=== PATIENT | female | born 1940 | race Caucasian/White ===

== ENCOUNTER → 2023-02-24 | Outpatient (CLI) | payer MEDICARE, SELFPAY ==
--- NOTE | 2023-02-24 13:50 | CT_ITS ---
EXAM: CT RIGHT LOWER EXTREMITY WITHOUT INTRAVENOUS CONTRAST CLINICAL INDICATION: templating for right TKA TECHNIQUE: Helically acquired images were obtained of the right lower extremity without intravenous contrast. 2-D reformats were performed by the technologist. CTDIvol = ( 25.66 ) mGy, DLP = ( 1588.19 ) mGycm This CT exam was performed using one or more of the following dose reduction techniques: automated exposure control, adjustment of the mA and/or kV according to patient size, and/or use of iterative reconstruction technique. COMPARISON: No relevant prior studies available. 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 Moderate suprapatellar joint effusion. Small suprapatellar enthesophyte. Lateral meniscal chondral calcinosis. Diffuse osteopenia. Mild to moderate hip osteoarthrosis. Ankle mortise is intact with no osteochondral lesions at the medial or lateral talar dome. No acute or healing fracture or malalignment or any unusual lytic or sclerotic lesions of bone. SOFT TISSUES: Unremarkable. No soft tissue swelling or gas. No radiopaque foreign body. VASCULATURE: Multivessel peripheral vascular calcifications involving the extremity. CT/Extremity Lower without Contra IMPRESSION: 1. Preoperative planning study. 2. 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 Electronically Signed: Terrence Bueno MD at 23:53 EST ,
== END | disposition home or self-care (01) ==
PROVIDERS: PCP Family Medicine; Referring Provider Orthopaedic Surgery; Visit Provider Orthopaedic Surgery
DX: M17.11 Unilateral primary osteoarthritis, right knee (principal)
CPT/HCPCS: 73700

== ENCOUNTER 2023-03-24 05:53 | Day surgery (SDC) | payer MEDICARE, SELFPAY ==
[2023-03-13 09:19] LABS: Absolute Lymphocyte Count 2.26 X10^3/uL (0.83-4.51); Absolute Neutrophil Count 5.4 X10^3/uL (2.0-7.7); Basophil# 0.04 X10^3/uL; Basophil% 0.5 % (0-1); Eosinophil# 0.24 X10^3/uL; Eosinophils% 2.8 % (0-5); Hematocrit 36.4 % (37-47); Hemoglobin 12.4 g/dL (12.0-15.0); Lymphocyte # 2.26 X10^3/ul (0.83-4.51); Lymphocyte % 26.1 % (19-41); Mean Corp Hgb Conc 34.1 g/dL (32-36); Mean Corpuscular Hgb 27.4 pg (27.0-32.0); Mean Corpuscular Volume 80.5 fL (81-99); Mean Platelet Vol. 10.2 fl (6.2-12.0); Monocyte# 0.71 X10^3/uL; Monocyte% 8.2 % (0-10); NRBC Flagged by Analyzer 0 % (0-5); Neutrophil # 5.35 X10^3/uL (2.7-7.7); Neutrophil % 61.7 % (47-70); Platelet Count 248 K/mm3 (150-450); RBC Distribution Width CV 14.2 % (11.6-14.6); RBC Distribution Width SD 41.4 fl (35.1-43.9); Red Blood Count 4.52 M/mm3 (4.2-5.4); White Blood Count 8.7 K/mm3 (4.4-11.0)
[2023-03-13 09:26] LABS: International Normalized Ratio 0.9; Prothrombin Time (Protime)PT. 12.6 SECONDS (11.7-14.9)
[2023-03-13 09:27] LABS: Partial Thromboplast Time 27.2 Seconds (24.1-36.2)
[2023-03-13 09:30] LABS: Magnesium 2.2 mg/dL (1.6-2.6)
[2023-03-13 09:36] LABS: Anion Gap 4 (5-15); BUN 13 mg/dL (7-18); BUN/Creat Ratio 11.7 RATIO (10-20); Calcium,Total 9.5 mg/dL (8.5-10.1); Chloride 110 mmol/L (98-107); Creatinine, Serum 1.11 mg/dL (0.55-1.02); EST Glomerular Filtration Rate 50 mL/min (>60); Est Glom Filt Rate - Afr Amer 60 mL/min (>60); Glucose 79 mg/dL (74-106); Potassium 4.3 mmol/L (3.5-5.1); Sodium Level 141 mmol/L (136-145)
[2023-03-13 09:41] LABS: Hemoglobin A1c 5.3 % (3.8-5.6)
[2023-03-14 05:13] LABS: Fructosamine 211 umol/L (0-285)
[2023-03-24] VITALS (10 sets, daily range): BP systolic 118–161; BP diastolic 58–140; PULSE 79–104; RESP 18; TEMP 36.4–37.1; O2SAT 96–100; BMI 31.4
--- NOTE | 2023-03-24 | PAT_PTH ---
PATHOLOGY RESULTS PATIENT: ERICK BASSETT LOC: [facility] – [place] U#:[id number] AGE/SX: 82/F ROOM: RE03/24/[address]: Dr. Peter Mac DO : 1940 BED: DIS: 03/24/2023 SPEC #: [id number] RECD: 03/25/23 08:36 STATUS: MIMA REJanine #: [id number] DESTINEE: 03/24/23 00:[address]: Peter Mac DEPT: SURGICAL PATHOLOGY RECD BY: Danica Sorenson ENTERED: 03/25/23 08:36 SP TYPE: PATELLA PATSY DR: Dr. Finesse Nicole MD Tissues: Patella, NOS Procedures: Decalcification bone/plaque Surgery Specimen Level IV HEADER OPERATION: ERAS, right total knee replacement robotic arm assisted PRE-OP DIAGNOSIS: Right knee degenerative joint disease TISSUE SUBMITTED: Right patella MICROSCOPIC DIAGNOSIS Bone and soft tissue, right knee, total knee replacement/resection: Pieces of bone with degenerative osteoarthritic changes. Fragments of fibrocartilaginous tissue and reactive synovial tissue. Focal changes consistent with pseudogout. BRIDGETTE:speedy 03/27/2023 MICROSCOPIC DESCRIPTION Slides are reviewed. GROSS DESCRIPTION Received is one container designated right patella and debrided bone. The specimen consists of multiple fragments of adames-yellow bone measuring in aggregate 8.0 x 9.0 x 3.0 cm. Also in the specimen container are multiple fragments of fibrocartilaginous tissue measuring in aggregate 6.0 x 5.0 x 2.0 cm. A number of bony fragments contain articular surfaces consistent with tibial plateau and femoral condyle and displaying prominent osteophyte formation, eburnation and bone erosion. Measurement Analyst sections are submitted in two cassettes as follows: 1 - soft tissue, 2 - bone after decalcification. / BRIDGETTE:speedy 03/25/2023 TC:5 [facility]: [id number], [id number]
--- OUTSIDE RECORDS SUMMARY | 2023-03-24 05:55 | XMS RPT_ITS | CCD ---
Author Name Unknown Address [address] [place] [address] Organization [facility] Care Team Providers Care Hvac Sales Engineer Name Role Phone Unavailable Primary Care Provider Terence Nicole MD, Saida Coon Primary Care Provider KYLE PAIGE Attending Unavailable KYLE PAIGE Referring Unavailable SAIDA NICOLE Primary Care Unavailab SAIDA Olmos Primary Care Unavailab le PODLOGMICHELLE SHAW Attending Unavailable SAIDA NICOLE Primary Care Unavailab le PODLOGMICHELLE SHAW Referring Unavailable HOOD BARRETO Referring Unavailable SELF Referring Unavailable HOOD BARRETO Attending Unavailable SAIDA NICOLE Attending Unavailab SAIDA Olmos Referring Unavailab SAIDA Olmos Primary Care Unavailab SAIDA Olmos Referring Unavailab le SAIDA NICOLE Primary Care Unavailab SAIDA Olmos Primary Care Unavailab SAIDA Olmos Referring Unavailab le SAIDA NICOLE Primary Care Unavailab SAIDA Olmos Referring Unavailab SAIDA Olmos Primary Care Unavailab le PODLOGARMICHELLE Attending Unavailable SAIDA NICOLE Referring Unavailab SAIDA Olmos Primary Care Unavailab le PODLOGARMICHELLE Referring Unavailable KYLE PAIGE Attending Unavailable SAIDA NICOLE Primary Care Unavailab SAIDA Olmos Referring Unavailab KYLE Feliciano Attending Unavailable KYLE PAIGE Referring Unavailable SAIDA NICOLE Primary Care Unavailab le Allergies Allergy Classification Reported Allergen(s) Allergy Type Date of Onset Reaction(s) Facility (13 sources) Sulfonamides (Antibiotic); Translations: [SULFA (SULFONAMIDE ANTIBIOTICS)] Propensity to adverse reactions 5 [facility] Work Phone: Medications Completed/Discontinued Medications Medication Drug Class(es) Dates Sig (Normalized) Sig (Original) aspirin 81 mg delayed release oral tablet (13 sources) Platelet Aggregation Inhibitor, Nonsteroidal Anti-inflammatory Drug Start: 04-07-2007 End: 11-05-2022 aspirin(ECOTRIN LOW STRENGTH 81 MG TAB) Take one(1) tablet daily. 0 0 04/07/2007 11/05/2022 Discontinued (Discontinued by another Health Care Provider) Problems Active Problems Problem Classification Problem Date Documented Date Episodic/Chronic Chronic kidney disease (1 source) Chronic kidney disease stage 3A ; Translations: [Stage 3a chronic kidney disease (HCC)] 02-06-2023 Chronic Chronic kidney disease (1 source) Chronic kidney disease; Translations: [Stage 3a chronic kidney disease (HCC)] Onset: 02-23-2023 Diseases of white blood cells (2 sources) Leukocytosis; Translations: [Elevated white blood cell count, unspecified] Onset: 11-19-2022 11-06-2022 Chronic Esophageal disorders (12 sources) Gastroesophageal reflux disease; Translations: [Gastro-esophageal reflux disease without esophagitis] Onset: 11-05-2022 11-05-2022 Chronic Essential hypertension (20 sources) Benign essential hypertension; Translations: [Essential (primary) hypertension] Onset: 04-07-2007 04-07-2007 Chronic Immunizations and screening for infectious disease (1 source) Patient encounter status; Translations: [Encounter for immunization] 11-05-2022 Episodic Osteoarthritis (11 sources) Osteoarthritis of right knee joint; Translations: [Unilateral primary osteoarthritis, right knee] Onset: 11-05-2022 10-20-2022 Chronic Other fractures (1 source) Compression fracture of lumbar spine; Translations: [Wedge compression fracture of first lumbar vertebra, sequela] 11-07-2022 Episodic Other nervous system disorders (1 source) Other chronic pain; Translations: [Chronic pain of right knee] Onset: 02-06-2023 Chronic Other non-traumatic joint disorders (6 sources) Pain in right knee; Translations: [Pain in joint, lower leg] Onset: 09-15-2022 Episodic Other nutritional; endocrine; and metabolic disorders (1 source) Obese class I; Translations: [Obesity, unspecified] 11-05-2022 Chronic Other nutritional; endocrine; and metabolic disorders (9 sources) Obesity; Translations: [Obesity, unspecified] Onset: 11-05-2022 11-05-2022 Chronic Other nutritional; endocrine; and metabolic disorders (1 source) Obesity, unspecified; Translations: [Obesity, Class I, BMI 30-34.9] Onset: 11-05-2022 Chronic Past or Other Problems Problem Classification Problem Date Documented Da te Episodic/Chronic Acute and unspecified renal failure (2 sources) Acute injury of kidney; Translations: [Acute kidney failure, unspecified] Onset: 11-19-2022 11-06-2022 Episodic Other bone disease and musculoskeletal deformities (10 sources) Disorder of skeletal system; Translations: [Disorder of bone, unspecified] Onset: 11-05-2022 11-05-2022 Episodic Other non-traumatic joint disorders (12 sources) Shoulder joint pain; Translations: [Pain in unspecified shoulder] Onset: 04-07-2007 04-07-2007 Episodic Spondylosis; intervertebral disc disorders; other back problems (16 sources) Bilateral sciatica; Translations: [Sciatica, right side] Onset: 11-05-2022 11-05-2022 Episodic Results Test Name Value Interpretation Reference Range Facil ity Vital Signs Date Time Vital Sign Value Performing Clinician Justin dukes 02-06-2023 11:11-0500 Body weight 72.12 kg Michelle Podlogar FRANCHISE SALES MANAGER.RALPH Work Phone: [facility] 02-06-2023 11:11-0500 Diastolic blood pressure 72 mm[Hg] Michelle Podlogar FRANCHISE SALES MANAGER.CITY SUPERVISOR Work Phone: [facility] 02-06-2023 11:11-0500 Heart rate 69 /min Michelle Podlogar FRANCHISE SALES MANAGER.CITY SUPERVISOR Work Phone: [facility] 02-06-2023 11:11-0500 Respiratory rate 16 /min Michelle Podlogar FRANCHISE SALES MANAGER.CITY SUPERVISOR Work Phone: [facility] 02-06-2023 11:11-0500 SaO2% (BldA) [Mass fraction] 94 % Michelle Podlogar FRANCHISE SALES MANAGER.CITY SUPERVISOR Work Phone: [facility] 02-06-2023 11:11-0500 Systolic blood pressure 138 mm[Hg] Michelle Podlogar FRANCHISE SALES MANAGER.CITY SUPERVISOR Work Phone: [facility] 11-05-2022 08:41-0400 Body weight 73.03 kg Saida Nicole MD Work Phone: [facility] 11-05-2022 08:41-0400 Diastolic blood pressure 74 mm[Hg] Saida Nicole MD Work Phone: [facility] 11-05-2022 08:41-0400 Heart rate 74 /min Saida Nicole MD Work Phone: [facility] 11-05-2022 08:41-0400 Respiratory rate 14 /min Saida Nicole MD Work Phone: [facility] 11-05-2022 08:41-0400 Systolic blood pressure 138 mm[Hg] Saida Nicole MD Work Phone: [facility] Encounters Encounter Date Encounter Type Care Provider Facility Start: 02-23-2023 End: 02-24-2023 ambulatory SAIDA NICOLE Facility:[facility] Start: 02-23-2023 Encounter for other preprocedural examination MICHELLE [place] [facility] Start: 02-13-2023 End: 02-14-2023 ambulatory SAIDA NICOLE Facility:[facility] Start: 02-06-2023 End: 02-07-2023 ambulatory SAIDA NICOLE Facility:[facility] Start: 02-06-2023 End: 02-06-2023 Patient encounter procedure Michelle Ny FRANCHISE SALES MANAGER.CITY SUPERVISOR Work Phone: [facility] Procedures Date Procedure Procedure Detail Performing Clinician Start: 12-31-2022 INFLUENZA VACCINE, P RSV FREE, AGE 65+ YR, HIGH DOSE, QUADRIVALENT (FLUZONE HIGH-DOSE) Saida Nicole MD Work Phone: Start: 09-15-2022 Radiologic exam knee complete 4/more views Hood Barreto MD Work Phone: Plan of Treatment Date Care Activity Detail Author Start: 11-19-2025 Diabetes Screening Diabetes Screenin g [facility] Start: 11-05-2025 DIABETES SCREEN DIABETES SCREEN Clev [facility] Start: 11-05-2025 Diabetes Screening Diabetes Screenin g [facility] Start: 11-06-2023 COVID-19 VACCINE (#1) COVID-19 VACCI NE (#1) [facility] Immunizations Immunization Date Immunization Notes Care Provider Thuy hartman 12-31-2022 influenza (HD-IIV4) vaccine, age 65+ yr, high dose, quadrivalent, PF (FLUZONE HIGH-DOSE) Immunization Eduardo Work Phone: [facility] Work Phone: 11-05-2022 pneumococcal (PCV20) vaccine, 20 valent (PREVNAR 20) Saida Nicole MD Work Phone: [facility] 11-05-2022 pneumococcal Conjuga te, unspecified formulation Saida Nicole MD Work Phone: [facility] Work Phone: 07-10-2004 diphtheria and tetan us toxoids, adsorbed for pediatric use Hood Barreto MD Work Phone: [facility] Work Phone: 07-10-2004 pneumococcal polysaccharide vaccine, 23 valent Hood Barreto MD Work Phone: [facility] Work Phone: Payers Date Payer Category Payer Private Health Insurance [id number] 2018 Medicare [id number] Social History Date Type Detail Facility Start: 09-15-2022 Tobacco smoking status NHIS Never smoked tobacco [facility] Work Phone: Start: 04-07-2007 Alcohol intake Not Asked Erin brambila [facility] Start: 1940 Sex Assigned At Not on file [facility] Start: 09-15-2022 Tobacco use and exposure Smokeless tobacco non-user [facility] Start: 10-20-2022 End: 02-06-2023 Alcohol intake Current drinker of alcohol (finding) [facility] Start: 02-14-2020 End: 09-15-2022 History of Social function [facility] Work Phone: Start: 02-14-2020 End: 09-15-2022 Tobacco use panel [facility] Work Phone: National Score (1-100), lower number is lower risk Not on file [facility] Work Phone: Start: 09-15-2022 Alcohol Comment occasionally wine Cl [facility] Clinical Notes 09-15-2022 to 02-23-2023 PodMichelle ozuna APRN.CITY SUPERVISOR - 02/06/2023 10:58 AM EST Note Date & Type Note Facility 02-23-2023 Note HNO ID: [id number] Author: Michelle Ny APRN.CITY SUPERVISOR Service: ? Author Type: Nurse Practitioner Type: Progress Notes Filed: 02/23/2023 12:49 PM Note Text: CC: Patient presents with: Pre-Op Exam: Right knee replacement HPI Rosalee Charles is a 82 year old female who presents today for pre-op evaluation. Surgical Procedure: right total knee arthroplasty Date of Procedure: 03/24/2022 Surgeon: . Dr. Bubba BETANCOURT date: none Diabetes No Hypertension requiring medication Yes Congestive Heart Failure No Current Smoker within 1 Year No COPD/asthma No FIDENCIO No Dialysis No Acute renal failure No Steroid use for chronic condition No Disseminated cancer No METS: Walk indoors, such as around the house (1.75 METs): YES Do light work around the house, such as dusting or washing dishes (2.70 METs): YES Take care of self; that is eating, dressing, bathing, using the toilet (2.75 METs): YES Walk a block or two on level ground (2.75 METs): YES Do moderate work around the house such as vacuuming, sweeping floors, or carrying in groceries (3.50 METs): YES Do yardwork, such as raking leaves, weeding,or pushing a power mower (4.50 METs): YES Climb a flight of stairs or walk up a hill (5.50 METs): YES Participate in moderate recreational activities, such as golf, bowling, dancing, doubles tennis, or throwing a baseball or football (6.00 METs): NO Participate in strenuous sport, such as swimming, singles tennis, football, basketball, or skiing (7.50 METs): NO Do heavy work around the house, such as scrubbing floors, lifting or moving heavy furniture (8.00 METs): NO Run a short distance (8.00 METs): No Total: 46.9 Patient denies any chest pain or undue shortness of breath with activity REVIEW OF SYSTEMS GENERAL: No weight loss, malaise or fevers RESPIRATORY: Negative for cough, hemoptysis, wheezing, COPD, dyspnea or shortness of breath CARDIOVASCULAR: Negative for chest pain, leg swelling, hypertension, CHF or palpitations PAST MEDICAL HISTORY Diagnosis Date Arthritis Disorder of bone and cartilage, unspecified Diverticulitis of colon (without mention of hemorrhage)(562.11) GERD (gastroesophageal reflux disease) Hypertension Internal hemorrhoids without mention of complication Lumbar compression fracture (HCC) superior endplate L1 OA (osteoarthritis) of knee Dr. Barreto Obesity Sciatica PAST SURGICAL HISTORY Procedure Laterality Date COLONOSCOPY 2012 normal L'SCOPE CHOLECYSTECTOMY 05/2022 TONSILLECTOMY AND ADENOIDECTOMY ALLERGIES Sulfa (Sulfonamide Antibiotics) MEDICATIONS traMADol (ULTRAM) 50 mg tablet Take 50 mg by mouth as needed. aspirin, enteric coated (ASPIRIN, ENTERIC COATED) 81 mg EC tablet Take 81 mg by mouth twice daily. glucosamine/condroitin/olap809 (COSAMIN ASU ORAL) Take by mouth. omeprazole (PRILOSEC) 20 mg capsule Take 20 mg by mouth once daily. losartan (COZAAR) 50 mg tablet Take 1 tablet by mouth once daily. propylene glycoL (SYSTANE BALANCE) 0.6 % drop Use 1 Drop in both eyes as needed. FAMILY HISTORY Problem Relation Age of Onset Heart Mother Arthritis Mother Cancer Sister Heart disease Maternal Grandmother Breast Cancer Daughter 54 Social History Tobacco Use Smoking status: Never Smokeless tobacco: Never Vaping Use Vaping Use: Never used Substance Use Topics Alcohol use: Yes Alcohol/week: 3.0 standard drinks of alcohol Types: 3 Glasses of wine per week Comment: occasionally wine Drug use: Never BP 130/82 Pulse 79 Resp 18 Wt 72.6 kg (160 lb) SpO2 95% PHYSICAL EXAMINATION: General appearance: Well appearing, alert, in no acute distress, well-hydrated, well nourished. Skin: Skin color, texture, turgor normal, no suspicious rashes or lesions Eyes: Anicteric sclera. Oropharynx: Lips, mucosa, and tongue normal, teeth and gums normal, oropharynx normal Neck: Supple, no adenopathy; thyroid symmetric, normal size, no bruits Lungs: Lungs clear to auscultation. No wheezing, rhonchi, rales. Heart: RRR without murmur, gallop, or rubs. No ectopy Extremities: No deformities, edema, skin discoloration, clubbing or cyanosis. Good capillary refill. ASSESSMENT/PLAN: 1. Preop examination - ICD9: V72.84, ICD10: Z01.818 (primary diagnosis) ASA class: ASA 2- Mild systemic disease Functional status: Independent - 0.4% chance of complication including ND, PE, ventricular fibrillation, cardiac arrest or complete heart block using Rajesh's Simple Cardiac Risk index - ECG COMPLETE - CBC + DIFF - if CBC with diff normal will clear for surgery 2. Stage 3a chronic kidney disease (HCC) - ICD9: 585.3, ICD10: N18.31 - eGFR: 48 Worsening - Counseled on avoiding NSAIDs, adequate hydration - Counseled on low sodium diet - ACEi/ARB prescribed: Yes - BASIC METABOLIC PNL - recheck kidney function in 3 months Michelle Ny APRN.CITY SUPERVISOR Prescription instructions reviewed with patient as applica (more content not included)... [facility] 02-06-2023 Note HNO ID: [id number] Author: Michelle Ny APRN.CITY SUPERVISOR Service: ? Author Type: Nurse Practitioner Type: Progress Notes Filed: 02/06/2023 12:41 PM Note Text: 02/06/2023 Patient presents with: F/U 3 Month SUBJECTIVE: This is a 82 year old that is here today for Above Complaints. Since last office visit has been in good health without ER visits or hospitalizations. HTN: Patient is compliant with meds Yes Monitors bp at home: occasionally . Denies side effects: Yes. Chest pain: No. Dyspnea: No. Edema: No. Palpitations: No. Syncope: No. Headache: No. Dizziness: at times GERD: taking omeprazole as prescribed which controls symptoms well Has upcoming appointment with orthopedist for her right knee pain CKD: she reports she stopped the Celebrex but continues to take Naproxen. She reports she needs the Narpoxen for her hands as it is the only thing that helps PAST MEDICAL HISTORY Diagnosis Date Arthritis Disorder of bone and cartilage, unspecified Diverticulitis of colon (without mention of hemorrhage)(562.11) GERD (gastroesophageal reflux disease) Hypertension Internal hemorrhoids without mention of complication Lumbar compression fracture (HCC) superior endplate L1 OA (osteoarthritis) of knee Dr. Barreto Obesity Sciatica ALLERGIES Sulfa (Sulfonamide Antibiotics) MEDICATIONS Current Outpatient Medications Medication Sig traMADol (ULTRAM) 50 mg tablet Take 50 mg by mouth as needed. aspirin, enteric coated (ASPIRIN, ENTERIC COATED) 81 mg EC tablet Take 81 mg by mouth twice daily. glucosamine/condroitin/tgtu054 (COSAMIN ASU ORAL) Take by mouth. omeprazole (PRILOSEC) 20 mg capsule Take 20 mg by mouth once daily. losartan (COZAAR) 50 mg tablet Take 1 tablet by mouth once daily. propylene glycoL (SYSTANE BALANCE) 0.6 % drop Use 1 Drop in both eyes as needed. celecoxib (CELEBREX) 200 mg capsule Take 1 capsule by mouth twice daily. No current facility-administered medications for this visit. Medications and allergies reviewed by this provider. SOCIAL HISTORY Social History Tobacco Use Smoking status: Never Smokeless tobacco: Never Vaping Use Vaping Use: Never used Substance Use Topics Alcohol use: Yes Alcohol/week: 3.0 standard drinks of alcohol Types: 3 Glasses of wine per week Comment: occasionally wine Drug use: Never REVIEW OF SYSTEMS All other reviewed and negative other than HPI. OBJECTIVE: BP 138/72 Pulse 69 Resp 16 Wt 72.1 kg (159 lb) SpO2 94% . Vital signs reviewed by this provider. APPEARANCE Well appearing, alert, in no acute distress, well-hydrated, well nourished. EYES conjunctiva and sclera normal. HEART RRR with normal S1 and S2, no murmurs, no gallops, no JVD appreciated LUNG clear to auscultation EXTREMITIES Extremities normal, No deformities, No skin discoloration, and No edema SKIN Skin color, texture, turgor normal, no suspicious rashes or lesions Component Latest Ref Rng AND Units 11/05/2022 11/19/2022 WBC 3.70 - 11.00 k/uL 8.66 RBC 3.90 - 5.20 m/uL 4.78 Hemoglobin 11.5 - 15.5 g/dL 13.0 Hematocrit 36.0 - 46.0 % 39.1 MCV 80.0 - 100.0 fL 81.8 MCH 26.0 - 34.0 pg 27.2 MCHC 30.5 - 36.0 g/dL 33.2 RDW-CV 11.5 - 15.0 % 13.2 Platelet Count 150 - 400 k/uL 268 MPV 9.0 - 12.7 fL 11.1 Neut% % 55.6 Abs Neut (ANC) 1.45 - 7.50 k/uL 4.82 Lymph% % 30.4 Abs Lymph 1.00 - 4.00 k/uL 2.63 [place]% % 8.8 Abs [place] <0.87 k/uL 0.76 Eosin% % 3.6 Abs Eosin <0.46 k/uL 0.31 Baso% % 0.9 Abs Baso <0.11 k/uL 0.08 Immature Gran % % 0.7 IMMATURE GRANS (ABS) <0.10 k/uL 0.06 NRBC /100 WBC 0.0 Absolute nRBC <0.01 k/uL <0.01 DTYPE Auto Protein, Total 6.3 - 8.0 g/dL 6.8 Albumin 3.9 - 4.9 g/dL 4.1 Calcium 8.5 - 10.2 mg/dL 10.2 Bilirubin, Total 0.2 - 1.3 mg/dL 0.5 Alkaline Phosphatase 34 - 123 U/L 78 AST 13 - 35 U/L 19 ALT 7 - 38 U/L 11 Glucose 74 - 99 mg/dL 96 BUN 7 - 21 mg/dL 11 Creatinine 0.58 - 0.96 mg/dL 1.02 (H) Sodium 136 - 144 mmol/L 140 Potassium 3.7 - 5.1 mmol/L 4.2 Chloride 97 - 105 mmol/L 105 CO2 22 - 30 mmol/L 25 Anion Gap 9 - 18 mmol/L 10 eGFR >=60 mL/min/1.73mA? 55 (L) Total Cholesterol, Nonfasting <200 mg/dL 157 Triglycerides, Nonfasting <150 mg/dL 106 HDL Cholesterol, Nonfasting >39 mg/dL 42 LDL Cholesterol, Nonfasting <100 mg/dL 94 Non HDL Cholesterol, Nonfasting <130 mg/dL 115 VLDL Cholesterol, Nonfasting <30 mg/dL 21 Total Chol/HDL Ratio, Nonfasting <5.10 mg/dL 3.74 LDL/HDL Ratio, Nonfasting <2.54 mg/dL 2.24 Hemoglobin A1C 4.3 - 5.6 % 5.5 Estimated Average Glucose mg/dL 111 RSV Vaccine(1 - 1-dose 60+ series) Never done Advance Directive Discussion Never done DTaP,Tdap,Td Vaccine(2 - Tdap) due on 11/06/2023 Shingrix Vaccine(1 of 2) due on 11/06/2023 Covid-19 Vaccine(1) due on 11/06/2023 Diabetes Screening due on 11/19/2025 Bone Density Screening Completed Influenza Vaccine Completed Depression Assessment Completed Pneumococcal Vaccine: 65+ Co (more content not included)... [facility] 02-06-2023 History of Present illness Narrative 02/06/2023 Patient presents with: F/U 3 Month SUBJECTIVE: This is a 82 year old that is here today for Above Complaints. Since last office visit has been in good health without ER visits or hospitalizations. HTN: Patient is compliant with meds Yes Monitors bp at home: occasionally . Denies side effects: Yes. Chest pain: No. Dyspnea: No. Edema: No. Palpitations: No. Syncope: No. Headache: No. Dizziness: at times GERD: taking omeprazole as prescribed which controls symptoms well Has upcoming appointment with orthopedist for her right knee pain CKD: she reports she stopped the Celebrex but continues to take Naproxen. She reports she needs the Narpoxen for her hands as it is the only thing that helps PAST MEDICAL HISTORY Diagnosis Date Arthritis Disorder of bone and cartilage, unspecified Diverticulitis of colon (without mention of hemorrhage)(562.11) GERD (gastroesophageal reflux disease) Hypertension Internal hemorrhoids without mention of complication Lumbar compression fracture (HCC) superior endplate L1 OA (osteoarthritis) of knee Dr. Barreto Obesity Sciatica ALLERGIES Sulfa (Sulfonamide Antibiotics) MEDICATIONS Current Outpatient Medications Medication Sig traMADol (ULTRAM) 50 mg tablet Take 50 mg by mouth as needed. aspirin, enteric coated (ASPIRIN, ENTERIC COATED) 81 mg EC tablet Take 81 mg by mouth twice daily. glucosamine/condroitin/wqhn202 (COSAMIN ASU ORAL) Take by mouth. omeprazole (PRILOSEC) 20 mg capsule Take 20 mg by mouth once daily. losartan (COZAAR) 50 mg tablet Take 1 tablet by mouth once daily. propylene glycoL (SYSTANE BALANCE) 0.6 % drop Use 1 Drop in both eyes as needed. celecoxib (CELEBREX) 200 mg capsule Take 1 capsule by mouth twice daily. No current facility-administered medications for this visit. Medications and allergies reviewed by this provider. SOCIAL HISTORY Social History Tobacco Use Smoking status: Never Smokeless tobacco: Never Vaping Use Vaping Use: Never used Substance Use Topics Alcohol use: Yes Alcohol/week: 3.0 standard drinks of alcohol Types: 3 Glasses of wine per week Comment: occasionally wine Drug use: Never REVIEW OF SYSTEMS All other reviewed and negative other than HPI. OBJECTIVE: BP 138/72 Pulse 69 Resp 16 Wt 72.1 kg (159 lb) SpO2 94% . Vital signs reviewed by this provider. APPEARANCE Well appearing, alert, in no acute distress, well-hydrated, well nourished. EYES conjunctiva and sclera normal. HEART RRR with normal S1 and S2, no murmurs, no gallops, no JVD appreciated LUNG clear to auscultation EXTREMITIES Extremities normal, No deformities, No skin discoloration, and No edema SKIN Skin color, texture, turgor normal, no suspicious rashes or lesions Component Latest Ref Rng & Units 11/05/2022 11/19/2022 WBC 3.70 - 11.00 k/uL 8.66 RBC 3.90 - 5.20 m/uL 4.78 Hemoglobin 11.5 - 15.5 g/dL 13.0 Hematocrit 36.0 - 46.0 % 39.1 MCV 80.0 - 100.0 fL 81.8 MCH 26.0 - 34.0 pg 27.2 MCHC 30.5 - 36.0 g/dL 33.2 RDW-CV 11.5 - 15.0 % 13.2 Platelet Count 150 - 400 k/uL 268 MPV 9.0 - 12.7 fL 11.1 Neut% % 55.6 Abs Neut (ANC) 1.45 - 7.50 k/uL 4.82 Lymph% % 30.4 Abs Lymph 1.00 - 4.00 k/uL 2.63 [place]% % 8.8 Abs [place] <0.87 k/uL 0.76 Eosin% % 3.6 Abs Eosin <0.46 k/uL 0.31 Baso% % 0.9 Abs Baso <0.11 k/uL 0.08 Immature Gran % % 0.7 IMMATURE GRANS (ABS) <0.10 k/uL 0.06 NRBC /100 WBC 0.0 Absolute nRBC <0.01 k/uL <0.01 DTYPE Auto Protein, Total 6.3 - 8.0 g/dL 6.8 Albumin 3.9 - 4.9 g/dL 4.1 Calcium 8.5 - 10.2 mg/dL 10.2 Bilirubin, Total 0.2 - 1.3 mg/dL 0.5 Alkaline Phosphatase 34 - 123 U/L 78 AST 13 - 35 U/L 19 ALT 7 - 38 U/L 11 Glucose 74 - 99 mg/dL 96 BUN 7 - 21 mg/dL 11 Creatinine 0.58 - 0.96 mg/dL 1.02 (H) Sodium 136 - 144 mmol/L 140 Potassium 3.7 - 5.1 mmol/L 4.2 Chloride 97 - 105 mmol/L 105 CO2 22 - 30 mmol/L 25 Anion Gap 9 - 18 mmol/L 10 eGFR >=60 mL/min/1.73m 55 (L) Total Cholesterol, Nonfasting <200 mg/dL 157 Triglycerides, Nonfasting <150 mg/dL 106 HDL Cholesterol, Nonfasting >39 mg/dL 42 LDL Cholesterol, Nonfasting <100 mg/dL 94 Non HDL Cholesterol, Nonfasting <130 mg/dL 115 VLDL Cholesterol, Nonfasting <30 mg/dL 21 Total Chol/HDL Ratio, Nonfasting <5.10 mg/dL 3.74 LDL/HDL Ratio, Nonfasting <2.54 mg/dL 2.24 Hemoglobin A1C 4.3 - 5.6 % 5.5 Estimated Average Glucose mg/dL 111 RSV Vaccine(1 - 1-dose 60+ series) Never done Advance Directive Discussion Never done DTaP,Tdap,Td Vaccine(2 - Tdap) due on 11/06/2023 Shingrix Vaccine(1 of 2) due on 11/06/2023 Covid-19 Vaccine(1) due on 11/06/2023 Diabetes Screening due on 11/19/2025 Bone Density Screening Completed Influenza Vaccine Completed Depression Assessment Completed Pneumococcal Vaccine: 65+ Completed ASSESSMENT/PLAN: 1. Primary hypertension - ICD9: 401.9, ICD10: I10 (primary diagnosis) - Controlled - Continue current medications - Recommend home blood pressure monitoring, to bring results to next visit - Encouraged sodium restriction, DASH or Mediterranean diet - Recommend regular aerobic exercise - Follow up in 6 months for hypertension visit 2. Stage 3a chronic kidney disease (HCC) - ICD9: 585.3, ICD10: N18.31 - eGFR: 55 Stable - Counseled on avoiding NSAIDs, adequate hydration - Counseled on low sodium diet - ACEi/ARB prescribed: Yes - BASIC METABOLIC PNL 3. Gastroesophageal reflux disease, unspecified whether esophagitis present - ICD9: 530.81, ICD10: K21.9 - stable on current regime 4. Chronic pain of right knee - ICD9: 719.46, 338.29, ICD10: M25.561, G89.29 - follow-up with ortho as scheduled Michelle Ny APRN.[employer] Prescription instructions reviewed with patient as applicable. Patient advised if symptoms do not improve or if symptoms worsen sooner, to contact their primary care physician. Potential red flag symptoms discussed with the patient. Reviewed appropriate action plan to take if red flag symptoms occur. Patient agreeable to treatment plan. I spent a total of 25 minutes on the date of the service which included preparing to see the patient, [id number]-[id number] patient care, completing clinical documentation, obtaining and/or reviewing separately obtained history, performing a medically appropriate examination, counseling and educating the patient/family/caregiver, and ordering medications, tests, or procedures. documented in this encounter [facility] documented in this encounter [facility]10-09-2023 NoteHNO ID: [id number] Author: Kyle Paige PT Service: ? Author Type: Physical Therapist Type: Progress Notes Filed: 12/15/2022 1:43 PM Note Text: Episode Visit Count: 3 Therapist That Will Accept/Oversee The Plan Of Care: Kyle Paige Start of Care Date: 11/18/22 Onset Date: 03/09/22 Plan of Care Certification Date: 11/18/22 Next Certification Due Date: 02/17/23 REHABILITATION AND SPORTS THERAPY PHYSICAL THERAPY DISCONTINUANCE OF CARE PLAN OF CARE UPDATE: Assessment: Rosalee Charles is discontinued from Physical Therapy services due to Patient/Client declining further intervention.. Patient was seen for 3 visits from Start of Care Date: 11/18/22 to 12/15/2022 and treatment included: Therapeutic exercise, Manual therapy, and Self-penitentiary management. Pt has seen resolution of symptoms from lumbar injection. Patient is non-compliant with exercises and does not wish to return due to resolution of symptoms with previously stated injection. Patient was encouraged to perform exercises as prescribed and call if any symptoms return or worsen. Goals updated on 12/12/2022. Goals for Episode of Care: created on 11/18/22 through 01/18/23 Independent in home exercises. Not met Patient will decrease pain rating by 2 points to meet minimal clinical important difference for numeric pain rating scale. Met Stand / Walk as needed for ADLs without pain/symptoms. Met Sleep through night without pain/symptoms. Met SUBJECTIVE: Pt continues to do well and has no pain. Patient has not done her exercises and feels no need to continue therapy. Pain: Pain Pain Level: 0 Pain Location: Back Frequency: Continuous Post Treatment Pain Post Treatment Pain Level: 0 PROMIS Scales Higher is Better 12/12/2022 11/18/2022 Phys Func - Score - 29 (severe dysfunction) Phys Func - Percentile - 2 % Self-Eff Symptom - Score 49 (Average) - Self-Eff Symptom - Percentile 46 % - T-scores: mean of general population = 50. 5 points is clinically meaningfully difference Percentiles provide an indication of how the patient's score ranks in relation to the general population. Higher percentile rankings indicate better function/quality of life. 50th percentile is the average of the general population and indicates half of respondents had a worse score. OBJECTIVE MEASURES WITH LEVEL OF FUNCTION: Lumbar Spine AROM Lumbar Flexion: Normal Lumbar Extension: Normal Lumbar R Side-Bend: Normal Lumbar L Side-Bend: Normal Lumbar R Rotation: Normal Lumbar L Rotation: Normal LE Strength Trunk Strength: 4+/5 Special Tests - Hip and Spine SLR Test: Right Negative TREATMENT: Therapeutic Exercise: 1: Reviewed HEP and discussed importance of compliance to keep pain at bay and prevent recurrence of symptoms Skilled Intervention: Patient was educated in proper exercise technique and purpose for exercises. Skilled judgment was used in selection of appropriate interventions. Provided written instruction for home exercise program to facilitate proper performance and compliance. Correct performance of therapeutic exercises was facilitated with verbal, visual, and tactile cuing. Billing Therapeutic Exercise Treatment Minutes: 12 Skilled Treatment Time Minutes (timed and untimed codes): 12 Total Session Time (minutes): 12 Session Start Time : 1318 Session Stop Time : 1330 Kyle Paige, [facility]10-09-2023 History of Present illness Narrative* Luis Enrique Paigen, PT - 12/15/2022 1:40 PM EDT Episode Visit Count: 3 Therapist That Will Accept/Oversee The Plan Of Care: Kyle Royal Start of Care Date: 11/18/22 Onset Date: 03/09/22 Plan of Care Certification Date: 11/18/22 Next Certification Due Date: 02/17/23 REHABILITATION AND SPORTS THERAPY PHYSICAL THERAPY DISCONTINUANCE OF CARE PLAN OF CARE UPDATE: Assessment: Rosalee Charles is discontinued from Physical Therapy services due to Patient/Client declining further intervention.. Patient was seen for 3 visits from Start of Care Date: 11/18/22 to 12/15/2022 and treatment included: Therapeutic exercise, Manual therapy, and Self-penitentiary management. Pt has seen resolution of symptoms from lumbar injection. Patient is non-compliant with exercises and does not wish to return due to resolution of symptoms with previously stated injection. Patient was encouraged to perform exercises as prescribed and call if any symptoms return or worsen. Goals updated on 12/12/2022. Goals for Episode of Care: created on 11/18/22 through 01/18/23 Independent in home exercises. Not met Patient will decrease pain rating by 2 points to meet minimal clinical important difference for numeric pain rating scale. Met Stand / Walk as needed for ADLs without pain/symptoms. Met Sleep through night without pain/symptoms. Met SUBJECTIVE: Pt continues to do well and has no pain. Patient has not done her exercises and feels no need to continue therapy. Pain: Pain Pain Level: 0 Pain Location: Back Frequency: Continuous Post Treatment Pain Post Treatment Pain Level: 0 PROMIS Scales Higher is Better 12/12/2022 11/18/2022 Phys Func - Score - 29 (severe dysfunction) Phys Func - Percentile - 2 % Self-Eff Symptom - Score 49 (Average) - Self-Eff Symptom - Percentile 46 % - T-scores: mean of general population = 50. 5 points is clinically meaningfully difference Percentiles provide an indication of how the patient's score ranks in relation to the general population. Higher percentile rankings indicate better function/quality of life. 50th percentile is the average of the general population and indicates half of respondents had a worse score. OBJECTIVE MEASURES WITH LEVEL OF FUNCTION: Lumbar Spine AROM Lumbar Flexion: Normal Lumbar Extension: Normal Lumbar R Side-Bend: Normal Lumbar L Side-Bend: Normal Lumbar R Rotation: Normal Lumbar L Rotation: Normal LE Strength Trunk Strength: 4+/5 Special Tests - Hip and Spine SLR Test: Right Negative TREATMENT: Therapeutic Exercise: 1: Reviewed HEP and discussed importance of compliance to keep pain at bay and prevent recurrence of symptoms Skilled Intervention: Patient was educated in proper exercise technique and purpose for exercises. Skilled judgment was used in selection of appropriate interventions. Provided written instruction for home exercise program to facilitate proper performance and compliance. Correct performance of therapeutic exercises was facilitated with verbal, visual, and tactile cuing. Billing Therapeutic Exercise Treatment Minutes: 12 Skilled Treatment Time Minutes (timed and untimed codes): 12 Total Session Time (minutes): 12 Session Start Time : 1318 Session Stop Time : 1330 Kyle Paige PT [facility] NoteHNO ID: [id number] Author: Kyle Paige PT Service: ? Author Type: Physical Therapist Type: Progress Notes Filed: 12/02/2022 2:34 PM Note Text: Episode Visit Count: 2 Therapist That Will Accept/Oversee The Plan Of Care: Kyle Paige Start of Care Date: 11/18/22 Onset Date: 03/09/22 Plan of Care Certification Date: 11/18/22 Next Certification Due Date: 02/17/23 REHABILITATION AND SPORTS THERAPY PHYSICAL THERAPY TREATMENT NOTE ASSESSMENT: Rosalee Charles tolerated the session with no issues. She demonstrated improvements in low back pain management. The patient will continue to benefit from ongoing skilled physical therapy to progress toward set goals. PLAN FOR NEXT VISIT: Continue core stabilization training. Progress to standing position SUBJECTIVE: pt. had an injection in her back and is feeling better. She is not reporting any pain after the injection. pt. has not felt the need to complete HEP Pain: Pain Pain Level: 0 Pain Location: Back, Leg - Left, Leg - Right Frequency: Continuous Post Treatment Pain Post Treatment Pain Level: 0 Post Treatment Pain Location: Back, Leg - Right, Leg - Left OBJECTIVE MEASURES WITH LEVEL OF FUNCTION: Form observed throughout session TREATMENT: Therapeutic Exercise: 1: Hooklying TA activation 3x10 2: *Hooklying TA activation with alternating marches 3x5 each leg 3: Hooklying TA activation with alternating LE slide outs 3x5 each leg 4: Hooklying TA activation with alternating UE raises and LE slide outs 3x5 each side 5: Pallov press with BTB 3x10 each direction 6: Seated on 65 mm physiobll alternating LE marches 3x8 each leg 7: Standing stir the pot BTB 2x10 CW CCW both sides Skilled Intervention: Patient was educated in proper exercise technique and purpose for exercises. Reviewed and educated patient on additions/changes for home exercise program as above (*). Skilled judgment was provided in selection of appropriate interventions. Provided written instruction for home exercise program to facilitate proper performance and compliance. Correct performance of therapeutic exercises was facilitated with verbal and visual cuing. Patient education as noted. Self-Long Term Management: 1: *discussed personal training recommendations Skilled Intervention: Skilled judgment in the selection of proper modification for activity of daily living/home management based on clinical presentation, deficits, and needs. Reviewed patient specific diagnosis in relation to activities of daily living/home management. Activity progression based on professional judgement. Billing Therapeutic Exercise Treatment Minutes: 38 Self-Care/Home Management Treatment Minutes: 2 Skilled Treatment Time Minutes (timed and untimed codes): 40 Total Session Time (minutes): 40 Session Start Time : 1312 Session Stop Time : 1352 FELIPE Canales PT Supervising therapist was present and guided the care of the patient for the entire session on this date. All documentation was reviewed and agreed upon. Kyle Paige [facility]09-13-2023 NoteHNO ID: [id number] Author: Cynthia Dunne Service: ? Author Type: ? Type: Progress Notes Filed: 11/19/2022 4:54 PM Note Text: POPULATION HEALTH NAVIGATION OUTREACH Action/FYI [place] Support: Called pt to schedule an appt in Pain Management. See?s provider closer to home Patient Identified by Name and : YES, via phone Outreach Outcome/Action Spoke to patient / parent / legal guardian: Patient will return the call or ask for return call Did you use a PCP flex slot to schedule this appointment? No Reason for Outreach Care Gap or Scheduling/Wellness visits Payer: Payor: [employer] MEDICARE / Plan: [employer] GOLD PLUS / Product Type: HMO / Care Gap Reviewed:: Specialty Scheduling Reminder: Reminder note to check Health Maintenance for items below Health Maintenance items due: Advance Directive Discussion Never done Influenza Vaccine(1) due on 11/07/2022 Navigation Signature: Cynthia Dunne November 19, 2022 4:54 [facility]09-13-2023 History of Present illness Narrative* Cynthia Dunne - 11/19/2022 4:54 PM EDT POPULATION HEALTH NAVIGATION OUTREACH Action/[facility] Support: Called pt to schedule an appt in Pain Management. See s provider closer to home Patient Identified by Name and : YES, via phone Outreach Outcome/Action Spoke to patient / parent / legal guardian: Patient will return the call or ask for return call Did you use a PCP flex slot to schedule this appointment? No Reason for Outreach Care Gap or Scheduling/Wellness visits Payer: Payor: [employer] MEDICARE / Plan: [employer] GOLD PLUS / Product Type: HMO / Care Gap Reviewed:: Specialty Scheduling Reminder: Reminder note to check Health Maintenance for items below Health Maintenance items due: Advance Directive Discussion Never done Influenza Vaccine(1) due on 11/07/2022 Navigation Signature: Cynthia Dunne November 19, 2022 4:54 PM [facility] NotePatient Outreach (NETNAV) ROSALEE CHARLES ([id number]) 1940 F Date Time Provider Department 11/19/22 NO PCP NETNAV During your visit today, we recorded the following information about you: Cynthia Dunne 11/19/2022 4:54 PM Signed POPULATION HEALTH NAVIGATION OUTREACH Action/[facility] [place] Support: Called pt to schedule an appt in Pain Management. See?s provider closer to home Patient Identified by Name and : YES, via phone Outreach Outcome/Action Spoke to patient / parent / legal guardian: Patient will return the call or ask for return call Did you use a PCP flex slot to schedule this appointment? No Reason for Outreach Care Gap or Scheduling/Wellness visits Payer: Payor: [employer] MEDICARE / Plan: [employer] PLUS / Product Type: HMO / Care Gap Reviewed:: Specialty Scheduling Reminder: Reminder note to check Health Maintenance for items below Health Maintenance items due: Advance Directive Discussion Never done Influenza Vaccine(1) due on 11/07/2022 Navigation Signature: Cynthia Dunne November 19, 2022 4:54 PM Allergies As of Date: 11/19/2022 Noted Allergy Reaction SULFA (SULFONAMIDE ANTIBIOTICS) 11/29/2004 Date Reviewed: 11/05/2022 Reviewed by: Marisela Mckeon Ma - Fully Assessed Prescriptions as of 11/19/2022 - traMADol (ULTRAM) 50 mg tablet Take 50 mg by mouth as needed. - aspirin, enteric coated (ASPIRIN, ENTERIC COATED) 81 mg EC tablet Take 81 mg by mouth twice daily. - glucosamine/condroitin/kvlb095 (COSAMIN ASU ORAL) Take by mouth. - omeprazole (PRILOSEC) 20 mg capsule Take 20 mg by mouth once daily. - losartan (COZAAR) 50 mg tablet Take 1 tablet by mouth once daily. - propylene glycoL (SYSTANE BALANCE) 0.6 % drop Use 1 Drop in both eyes as needed. - celecoxib (CELEBREX) 200 mg capsule Take 1 capsule by mouth twice daily. 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 Author Type: Physical Therapist Type: Progress Notes Filed: 11/21/2022 3:10 PM Note Text: Episode Visit Count: 1 Therapist That Will Accept/Oversee The Plan Of Care: Kyle Paige Start of Care Date: 11/18/22 Onset Date: 03/09/22 Plan of Care Certification Date: 11/18/22 Next Certification Due Date: 02/17/23 Patient Identified by Name and Date of : Yes REHABILITATION AND SPORTS THERAPY PHYSICAL THERAPY EVALUATION PLAN OF CARE: Assessment: Rosalee Charles presents with chief complaint of LBP that interferes with sitting, rising from a chair, standing, walking, bending, heavy exertion, lifting, physical activities . She presents with impairments in ADL's, overall function, strength, and symptom management. PROMIS? (Patient-Reported Outcomes Measurement Information System) scores were reviewed and physical function domain identified as a rehabilitation concern. Prognosis for therapy is Fair due to: clinical presentation, advanced age, chronic nature of impairments, limited tolerance to activity . She will benefit from skilled therapy services to meet the goals established for this plan of care as noted below. Classification Low Back Pain Subgroup Classification: Specific exercise subgroup: recommended visits 8. Specific Exercies Subgroup Classification based on: directional preference Goals for Episode of Care: created on 11/18/22 through 01/18/23 Independent in home exercises. Patient will decrease pain rating by 2 points to meet minimal clinical important difference for numeric pain rating scale. Stand / Walk as needed for ADLs without pain/symptoms. Sleep through night without pain/symptoms. Planned Interventions, Frequency, and Duration: Current Frequency: 1x/week Duration: 8 weeks Total Number of Visits Planned: 8 Planned Treatment Interventions: Therapeutic exercise (97937), Neuromuscular re-education (36786), Manual therapy (10427), Therapeutic activities (69549), Self-penitentiary management (59597), Patient/Family/Caregiver Education, Body Mechanics Training PLAN FOR NEXT VISIT: Continue flexion bias and traction, add in neutral spine strengthening in supine Patient demonstrates good understanding of plan of care and treatment. The above goals and plan of care were discussed and agreed upon by patient/family. SUBJECTIVE: LBP for years, with worsening onset in the last year or so. Has had ELI injections and OTC meds, but no formal therapy. Sitting hurts the worst, followed by standing and upright activities. Notes lying on her back is the only position that relieves pain, but as soon as she gets up in the morning sciatic symptoms begin Functional Limitations: sitting, rising from a chair, standing, walking, bending, heavy exertion, lifting, physical activities Prior Level of Function: Independent without limitations Intake Information: Prescription present Pain: Pain Pain Level: 9 Pain Location: Back, Leg - Left, Leg - Right Description: Sharp, Shooting, Numbness, Tingling Frequency: Continuous PROMIS Scales Higher is Better 11/18/2022 Phys Func - Score 29 (severe dysfunction) Phys Func - Percentile 2 % T-scores: mean of general population = 50. 5 points is clinically meaningfully difference Percentiles provide an indication of how the patient's score ranks in relation to the general population. Higher percentile rankings indicate better function/quality of life. 50th percentile is the average of the general population and indicates half of respondents had a worse score. OBJECTIVE MEASURES WITH LEVEL OF FUNCTION: Lumbar Spine AROM Lumbar Flexion: Normal Lumbar Extension: Moderate limitation Lumbar R Side-Bend: Normal Lumbar L Side-Bend: Moderate limitation Lumbar R Rotation: Minimal limitation Lumbar L Rotation: Minimal limitation Repeated Test Movements - Lumbar RFIL - Symptoms During: decreases, centralizing RFIL - Symptoms After: better LE Strength Trunk Strength: 3/5 R LE Strength: 4+/5 L LE Strength: 4+/5 Special Tests - Hip and Spine Hip and Spine Special Tests: SLR Test SLR Test: Right Positive, Left Positive Education: Education Learning/educational needs: Home exercise program, Plan of Care, Changes in Plan of Care, Posture, Body Mechanics TREATMENT: PT Treatment Interventions: Therapeutic Exercise, Manual Therapy Evaluation Therapeutic Exercise: 1: *SKC 3x30 sec/side 2: *DKC 3x30 sec 3: Reviewed anatomical considerations and rationale for exercises with education and spine model Skilled Intervention: Patient was educated in proper exercise technique and purpose for exercises. Skilled judgment was provided in selection of appropriate interventions. Provided written instruction for home exercise program to facilitate proper performance and compliance. Correct performance of therapeutic exercises was facilitated with verbal (more content not included)...[facility]09-12-2023 History of Present illness Narrative* Kyle Paige, PT - 11/18/2022 2:26 PM EDT Episode Visit Count: 1 Therapist That Will Accept/Oversee The Plan Of Care: Kyle Paige Start of Care Date: 11/18/22 Onset Date: 03/09/22 Plan of Care Certification Date: 11/18/22 Next Certification Due Date: 02/17/23 Patient Identified by Name and Date of : Yes REHABILITATION AND SPORTS THERAPY PHYSICAL THERAPY EVALUATION PLAN OF CARE: Assessment: Rosalee Charles presents with chief complaint of LBP that interferes with sitting, rising from a chair, standing, walking, bending, heavy exertion, lifting, physical activities . She presents with impairments in ADL's, overall function, strength, and symptom management. PROMIS (Patient-Reported Outcomes Measurement Information System) scores were reviewed and physical function domain identified as a rehabilitation concern. Prognosis for therapy is Fair due to: clinical presentation, advanced age, chronic nature of impairments, limited tolerance to activity . She will benefit from skilled therapy services to meet the goals established for this plan of care as noted below. Classification Low Back Pain Subgroup Classification: Specific exercise subgroup: recommended visits 8. Specific Exercies Subgroup Classification based on: directional preference Goals for Episode of Care: created on 11/18/22 through 01/18/23 Independent in home exercises. Patient will decrease pain rating by 2 points to meet minimal clinical important difference for numeric pain rating scale. Stand / Walk as needed for ADLs without pain/symptoms. Sleep through night without pain/symptoms. Planned Interventions, Frequency, and Duration: Current Frequency: 1x/week Duration: 8 weeks Total Number of Visits Planned: 8 Planned Treatment Interventions: Therapeutic exercise (51539), Neuromuscular re- education (92158), Manual therapy (98668), Therapeutic activities (88561), Self- penitentiary management (10952), Patient/Family/Caregiver Education, Body Mechanics Training PLAN FOR NEXT VISIT: Continue flexion bias and traction, add in neutral spine strengthening in supine Patient demonstrates good understanding of plan of care and treatment. The above goals and plan of care were discussed and agreed upon by patient/family. SUBJECTIVE: LBP for years, with worsening onset in the last year or so. Has had ELI injections and OTC meds, but no formal therapy. Sitting hurts the worst, followed by standing and upright activities. Notes lying on her back is the only position that relieves pain, but as soon as she gets up in the morning sciatic symptoms begin Functional Limitations: sitting, rising from a chair, standing, walking, bending, heavy exertion, lifting, physical activities Prior Level of Function: Independent without limitations Intake Information: Prescription present Pain: Pain Pain Level: 9 Pain Location: Back, Leg - Left, Leg - Right Description: Sharp, Shooting, Numbness, Tingling Frequency: Continuous PROMIS Scales Higher is Better 11/18/2022 Phys Func - Score 29 (severe dysfunction) Phys Func - Percentile 2 % T-scores: mean of general population = 50. 5 points is clinically meaningfully difference Percentiles provide an indication of how the patient's score ranks in relation to the general population. Higher percentile rankings indicate better function/quality of life. 50th percentile is the average of the general population and indicates half of respondents had a worse score. OBJECTIVE MEASURES WITH LEVEL OF FUNCTION: Lumbar Spine AROM Lumbar Flexion: Normal Lumbar Extension: Moderate limitation Lumbar R Side-Bend: Normal Lumbar L Side-Bend: Moderate limitation Lumbar R Rotation: Minimal limitation Lumbar L Rotation: Minimal limitation Repeated Test Movements - Lumbar RFIL - Symptoms During: decreases, centralizing RFIL - Symptoms After: better LE Strength Trunk Strength: 3/5 R LE Strength: 4+/5 L LE Strength: 4+/5 Special Tests - Hip and Spine Hip and Spine Special Tests: SLR Test SLR Test: Right Positive, Left Positive Education: Education Learning/educational needs: Home exercise program, Plan of Care, Changes in Plan of Care, Posture, Body Mechanics TREATMENT: PT Treatment Interventions: Therapeutic Exercise, Manual Therapy Evaluation Therapeutic Exercise: 1: *SKC 3x30 sec/side 2: *DKC 3x30 sec 3: Reviewed anatomical considerations and rationale for exercises with education and spine model Skilled Intervention: Patient was educated in proper exercise technique and purpose for exercises. Skilled judgment was provided in selection of appropriate interventions. Provided written instruction for home exercise program to facilitate proper performance and compliance. Correct performance of therapeutic exercises was facilitated with verbal, visual, and tactile cuing. Manual Therapy: 1: Manual lumbar belt traction x10 min with pull to tolerance and pillow padding legs Skilled Intervention: Manual skills to improve joint mobility, ROM, and decrease pain. Utilized anatomy knowledge of the therapist, and assessment of patient's response to intervention. Billing Therapeutic Exercise Treatment Minutes: 13 Manual TherapyTreatment Minutes: 10 Total Session Time (minutes): 41 Session Start Time : 1004 Session Stop Time : 1045 Kyle Paige, PT documented in this encounterBu[facility]09-01-2023 Miscellaneous Notes* Telephone Encounter - Kathya Gutierrez RN - 11/07/2022 9:34 AM EDT Pt called and is notified of providers message. Pt voices understanding.Faxed orders, last OV note,bone density test, x-rays, and demographics sheet to Dr Lewis at [facility] # [phone]. Kathya Gutierrez RN * Telephone Encounter - Saida Nicole MD - 11/07/2022 8:54 AM EDT Orders approved. * Telephone Encounter - Dorothea Olivo Ma - 11/07/2022 8:45 AM EDT Call to pt and notified her of results and recommendation below from Provider. Pt states that she knew there was fx in her lumbar spine from a fall a few years ago, nothing new. Has PT appt scheduled. No recent BMD scan in the past two years. Agreeable to this. Agreeable to Pain Mgmt. Dorothea Olivo Ma * Telephone Encounter - Saida Nicole MD - 11/07/2022 8:41 AM EDT Lumbar spine xray shows multilevel arthritis changes with osteopenia and scoliosis. Also noted superior endplate fracture of L1 vertebrae with 25% loss of height. She has been treated for 2 years forback pain in [place] without new fall or injury, so I doubt this is a traumatic fracture and likely represents compression fracture from osteoporosis or osteopenia. If she has had a recent fall or back injury that she did not mention at her OV, please let me know. For persistent/chronic pain I would recommend referral to pain management and f/u with PT for sciatica. Will place order if agreeable. If she has not had DXA scan in the last 2 years we should obtain this as well and will place order if needed. documented in this encounterBu[facility]09-01-2023 Instructions* Patient Instructions* Dorothea Olivo Ma - 11/07/2022 8:49 AM EDT BONE MINERAL DENSITY PATIENT INSTRUCTIONS Bone mineral density testing measures the amount of calcium in certain parts of your bones. This information determines how strong your bones are. The test is used to detect osteoporosis, a disease in which the bone's mineral content and density are low, increasing a person's risk of fractures. Thelumbar spine (lower back) and the hip are the skeletal sites usually examined. For the test, remember that: 1. You cannot take this test if you are . 2. Eat a normal diet on the day of the test. 3. Take your medications as you normally would. 4. DO NOT take calcium supplements (such as Tums) for 24 hours before the test. 5. On the day of the test, leave valuables (jewelry or credit cards) at home. 6. The test should be performed prior to oral, rectal or IV contrast studies, or at least 7 days after any of these studies. For the test, you may be asked to wear a hospital gown. You will lie on your back, on a padded table, in a comfortable position. Generally, you can resume your usual activities immediately. documented in this encounterBu[facility]08-31-2023 Miscellaneous Notes* Telephone Encounter - Benita Duke LPN - 11/06/2022 3:44 PM EDT Patient notified of recommendations, verbalizes understanding of instructions. Benita Duke LPN * Telephone Encounter - Saida Nicole MD - 11/06/2022 3:38 PM EDT Yes, I would just have her try the tylenol for now and if her kidney function improves we may be able to add back NSAIDs at later date. * Telephone Encounter - Leobardo Santo RN - 11/06/2022 2:15 PM EDT Patient reports Dr. Nicole instructed her to stop all NSAIDs due to OMARI. Reports Dr. Barreto just advised her to increase her baby asa to 2 tablets daily, due to her pain. Asking if she should stop taking the baby asa also? Please advise patient. documented in this encounterBucyrus [facility]08-31-2023 Miscellaneous Notes* Telephone Encounter - Leobardo Santo RN - 11/06/2022 2:13 PM EDT Patient phoned for pcp instructions, and given provider's message below with verbalized understanding. * Telephone Encounter - Kathya Gutierrez RN - 11/06/2022 1:23 PM EDT Pts called and is notified of providers results and instructions. He voices understanding. He states he may have his call back if she has any questions. Kathya Gutierrez RN * Telephone Encounter - Saida Nicole MD - 11/06/2022 11:11 AM EDT Patient's blood work does show signs of OMARI which may be 2/2 excessive use of NSAIDs. At this time I would recommend pushing PO fluids, adhering to low sodium diet <2,000 mg per day, and stopping NSAIDs including Celebrex. May continue to take tylenol up to 1,000 mg TID PRN for pain. WBC mildly elevated. May be related to hydration status vs lab error vs early infection. Will recheck this with renal function in 2 weeks. Other labs normal. documented in this encounterBucyrus [facility]08-30-2023 NoteHNO ID: [id number] Author: Dede Garcia RT(R) Service: Radiology Author Type: Technologist Type: Progress Notes Filed: 11/05/2022 10:12 AM Note Text: Radiology Service Progress Note PATIENT NAME: Rosalee Charles DATE OF SERVICE: November 05, 2022 TIME: 10:02 AM PATIENT IDENTITY VERIFICATION COMPLETED USING TWO (2) IDENTIFIERS: Name and Date of confirmed by patient verbally. FALL SCREENING: Has the patient had 2 falls in the last year or 1 fall with injury or currently using an Ambulatory Assistive Device (Walker, Cane, Wheelchair, Crutches, etc.)? No PATIENT GENDER DATA: Female. status: : No status: NO. PATIENT RELEVANT IMPLANT DATA REVIEWED: Not Applicable RADIOLOGY DEPARTMENT: General X-ray: Exam(s) Completed: Spine X-Ray(s): Lumbar AP / LAT / L5-S1 PERIPHERAL IV DATA: Not applicable SIGNED BY: RT Enoc(R) November 05, 2022 10:02 [facility]08-30-2023 NoteHNO ID: [id number] Author: Saida Nicole MD Service: ? Author Type: Physician Type: Progress Notes Filed: 11/05/2022 9:51 AM Note Text: Chief Complaint Patient presents with: Establish Care HPI Rosalee Charles is a 82 year old female who presents here today for Above Complaints. Previous PCP: Mike Morrison in [place] with last OV in July or June. Patient notes that she was seeing a paint mixer machine Dr. David Nolasco in [place] for chronic left sided sciatica for about 18 months. Treated with ELI in her lumbar spine without much improvement. Last injection was about a year ago. Never referred to PT. Had xray of her lumbar spine which reportedly showed arthritis . Symptoms present for about 2 years without fall or back injury. Pain today in her bilateral lower back with radiation down her legs to her calves, left worse than right. Not treating with anything OTC. States she was using Tramadol for pain which was originally prescribe for right knee arthritis and is on Celebrex for her knee which helps with knee and back pain. Exacerbated with standing and preparing dinner states that her left leg feels weak at that time. Denies loss of bowel/bladder control, saddle anesthesia. Notes that Dr. Barreto recommended she stop Naproxen for knee pain 2/2 OA and switched to Celebrex, but she has been continuing to take both. HTN: Ms. Charles indicates that she is feeling well and denies any symptoms referable to elevated blood pressure. Specifically denies headache, chest pain, palpitations, dyspnea, and peripheral edema. Patient denies any side effects of her medication(s) and is compliant with their regimen. She does check BP's away from this office with average BP's in the 130's/70's range. Rosalee denies regular aerobic exercise. She watches her diet for sodium, low fat and low cholesterol generally not very much. Last 3 Encounter BP Readings: Date: BP: 11/05/2022 138/74 08/15/2011 140/76 03/27/2011 108/80 GERD controlled with OTC PPI PRN. Past medical history, appointments, medications, allergies reviewed. Previous Medical History PAST MEDICAL HISTORY Diagnosis Date Arthritis Disorder of bone and cartilage, unspecified Diverticulitis of colon (without mention of hemorrhage)(562.11) Hypertension Internal hemorrhoids without mention of complication Obesity Sciatica Previous Surgical History PAST SURGICAL HISTORY Procedure Laterality Date L'SCOPE CHOLECYSTECTOMY 05/2022 Family History FAMILY HISTORY Problem Relation Age of Onset Heart Mother Arthritis Mother Cancer Sister Patient Allergies ALLERGIES Allergen Reactions Sulfa (Sulfonamide * Current Medications Current Outpatient Medications on File Prior to Visit Medication Sig traMADol (ULTRAM) 50 mg tablet Take 50 mg by mouth as needed. losartan (COZAAR) 50 mg tablet Take 1 tablet by mouth once daily. naproxen (NAPROSYN) 500 mg tablet Take 1 tablet by mouth once daily. Take with food. celecoxib (CELEBREX) 200 mg capsule Take 1 capsule by mouth twice daily. aspirin, enteric coated (ASPIRIN, ENTERIC COATED) 81 mg EC tablet Take 81 mg by mouth twice daily. glucosamine/condroitin/[id number] (COSAMIN ASU ORAL) Take by mouth. omeprazole (PRILOSEC) 20 mg capsule Take 20 mg by mouth once daily. propylene glycoL (SYSTANE BALANCE) 0.6 % drop 1 Drop. No current facility-administered medications on file prior to visit. Social History Social History Tobacco Use Smoking status: Never Smokeless tobacco: Never Vaping Use Vaping Use: Never used Substance Use Topics Alcohol use: Yes Comment: occasionally wine Drug use: Never Review of Symptoms REVIEW OF SYSTEMS GENERAL: No weight loss, malaise or fevers RESPIRATORY: Negative for cough, hemoptysis, wheezing, COPD, dyspnea or shortness of breath CARDIOVASCULAR: Negative for chest pain, leg swelling, hypertension, CHF or palpitations GI: No nausea, vomiting, or diarrhea SKIN: Negative for lesions, rash, and itching EXAM: BP 138/74 Pulse 74 Resp 14 Wt 73 kg (161 lb) General Appearance: Well appearing, alert, in no acute distress, well-hydrated, well nourished.. Skin: Skin color, texture, turgor normal, no suspicious rashes or lesions. Back:good flexion and extension, good range of motion, reflexes are 2+ and symmetric, motor and sensory appear to be normal, negative SLR test, no evidence of scoliosis. Positive for TTP over lumbar spine and paraspinal muscles, left worse than right. Lungs: Lungs clear to auscultation. No wheezing, rhonchi, rales.. Heart: RRR without murmur, gallop, or rubs. No ectopy. Abdomen: Normal abdominal exam, Abdomen soft, non-tender. Bowel sounds normal. No masses, organomegaly. Extremities: No deformities, edema, skin discoloration, clubbing or cyanosis. Good capillary refill. Health Maintenance List COVID-19 VACCINE(1) Never done SHINGRIX VACCINE(1 of 2) Never done PNEUMOCOCCAL: 6 (more content not included)...[facility] 11-05-2022 History of Present illness Narrative* Saida Nicole MD - 11/05/2022 8:57 AM EDT Chief Complaint Patient presents with: Establish [facility] HPI Rosalee Pena White is a 82 year old female who presents here today for Above Complaints. Previous PCP: Mike Morrison in [place] with last OV in July or June. Patient notes that she was seeing a paint mixer machine Dr. David Nolasco in [place] for chronic left sided sciatica for about 18 months. Treated with ELI in her lumbar spine without much improvement. Last injection was about a year ago. Never referred to PT. Had xray of her lumbar spine which reportedly showed arthritis . Symptoms present for about 2 years without fall or back injury. Pain today in her bilateral lower back with radiation down her legs to her calves, left worse than right. Nottreating with anything OTC. States she was using Tramadol for pain which was originally prescribe for right knee arthritis and is on Celebrex for her knee which helps with knee and back pain. Exacerbated with standing and preparing dinner states that her left leg feels weak at that time. Denies loss of bowel/bladder control, saddle anesthesia. Notes that Dr. Barreto recommended she stop Naproxen for knee pain 2/2 OA and switched to Celebrex, but she has been continuing to take both. HTN: Ms. Charles indicates that she is feeling well and denies any symptoms referable to elevated blood pressure. Specifically denies headache, chest pain, palpitations, dyspnea, and peripheral edema. Patient denies any side effects of her medication(s) and is compliant with their regimen. She does check BP's away from this office with average BP's in the 130's/70's range. Rosalee denies regular aerobic exercise. She watches her diet for sodium, low fat and low cholesterol generally not very much. Last 3 Encounter BP Readings: Date: BP: 11/05/2022 138/74 08/15/2011 140/76 03/27/2011 108/80 GERD controlled with OTC PPI PRN. Past medical history, appointments, medications, allergies reviewed. Previous Medical History PAST MEDICAL HISTORY Diagnosis Date Arthritis Disorder of bone and cartilage, unspecified Diverticulitis of colon (without mention of hemorrhage)(562.11) Hypertension Internal hemorrhoids without mention of complication Obesity Sciatica Previous Surgical History PAST SURGICAL HISTORY Procedure Laterality Date L'SCOPE CHOLECYSTECTOMY 05/2022 Family History FAMILY HISTORY Problem Relation Age of Onset Heart Mother Arthritis Mother Cancer Sister Patient Allergies ALLERGIES Allergen Reactions Sulfa (Sulfonamide * Current Medications Current Outpatient Medications on File Prior to Visit Medication Sig traMADol (ULTRAM) 50 mg tablet Take 50 mg by mouth as needed. losartan (COZAAR) 50 mg tablet Take 1 tablet by mouth once daily. naproxen (NAPROSYN) 500 mg tablet Take 1 tablet by mouth once daily. Take with food. celecoxib (CELEBREX) 200 mg capsule Take 1 capsule by mouth twice daily. aspirin, enteric coated (ASPIRIN, ENTERIC COATED) 81 mg EC tablet Take 81 mg by mouth twice daily. glucosamine/condroitin/cgir010 (COSAMIN ASU ORAL) Take by mouth. omeprazole (PRILOSEC) 20 mg capsule Take 20 mg by mouth once daily. propylene glycoL (SYSTANE BALANCE) 0.6 % drop 1 Drop. No current facility-administered medications on file prior to visit. Social History Social History Tobacco Use Smoking status: Never Smokeless tobacco: Never Vaping Use Vaping Use: Never used Substance Use Topics Alcohol use: Yes Comment: occasionally wine Drug use: Never Review of Symptoms REVIEW OF SYSTEMS GENERAL: No weight loss, malaise or fevers RESPIRATORY: Negative for cough, hemoptysis, wheezing, COPD, dyspnea or shortness of breath CARDIOVASCULAR: Negative for chest pain, leg swelling, hypertension, CHF or palpitations GI: No nausea, vomiting, or diarrhea SKIN: Negative for lesions, rash, and itching EXAM: BP 138/74 Pulse 74 Resp 14 Wt 73 kg (161 lb) General Appearance: Well appearing, alert, in no acute distress, well-hydrated, well nourished.. Skin: Skin color, texture, turgor normal, no suspicious rashes or lesions. Back:good flexion and extension, good range of motion, reflexes are 2+ and symmetric, motor and sensory appear to be normal, negative SLR test, no evidence of scoliosis. Positive for TTP over lumbar spine and paraspinal muscles, left worse than right. Lungs: Lungs clear to auscultation. No wheezing, rhonchi, rales.. Heart: RRR without murmur, gallop, or rubs. No ectopy. Abdomen: Normal abdominal exam, Abdomen soft, non-tender. Bowel sounds normal. No masses, organomegaly. Extremities: No deformities, edema, skin discoloration, clubbing or cyanosis. Good capillary refill. Health Maintenance List COVID-19 VACCINE(1) Never done SHINGRIX VACCINE(1 of 2) Never done PNEUMOCOCCAL: 65+(2 - PCV) due on 07/10/2005 DTAP,TDAP,TD(2 - Tdap) due on 07/10/2014 DIABETES SCREEN due on 08/13/2014 ADVANCE DIRECTIVE DISCUSSION Never done DEPRESSION ASSESSMENT Never done INFLUENZA(1) due on 11/07/2022 BONE DENSITY Completed ASSESSMENT/PLAN: 1. Bilateral sciatica - ICD9: 724.3, ICD10: M54.31, M54.32 (primary diagnosis) Sciatica - Ice for localized tenderness - Warm moist heat for 20 min three times a day - NSAIDS- see orders - PT consult - Xrays- see orders - Patient given instructions use of medications as ordered, intermittent rest, back care exercise program, weight loss, improved posture, proper lifting techniques, and intermittent use of heat - XR LUMBAR GENERAL 3V AP/LAT/L5-S1 - CONSULT TO PHYSICAL THERAPY 2. Primary hypertension - ICD9: 401.9, ICD10: I10 - Controlled - Continue current medications - Recommend home blood pressure monitoring, to bring results to next visit - Encouraged sodium restriction, DASH or Mediterranean diet - Recommend regular aerobic exercise - CBC + DIFF - COMP METABOLIC PANEL 3. Obesity, Class I, BMI 30-34.9 - ICD9: 278.00, ICD10: E66.9 Newly diagnosed - Behavioral intervention - CBC + DIFF - COMP METABOLIC PANEL - LIPID PANEL, NONFASTING - HGB A1C 4. Primary osteoarthritis of right knee - ICD9: 715.16, ICD10: M17.11 Continue Celebrex BID and f/u with ortho for repeat injection vs knee replacement if pain persists.Discussed only taking Celebrex and should discontinue Naproxen. May take tylenol 1,000 mg TID PRN for pain as well. 5. Gastroesophageal reflux disease, unspecified whether esophagitis present - ICD9: 530.81, ICD10: K21.9 - Discussed lifestyle modifications including losing weight, limiting caffeine, and no meals three hours before sleep - Continue treatment with Prilosec 20 mg PRN 6. Disorder of bone and cartilage - ICD9: 733.90, ICD10: M89.9, M94.9 Patient states she was not told if she has osteoporosis or osteopenia. Will obtain records from previous PCP and update. 7. Encounter for immunization - ICD9: V03.89, ICD10: Z23 - PNEUMOCOCCAL VACCINE (PREVNAR 20) Saida Nicole MD documented in this encounterBu[facility]07-10-2023 NoteHNO ID: [id number] Author: Hood Barreto MD Service: ? Author Type: Physician Type: Progress Notes Filed: 10/20/2022 5:30 PM Note Text: Hood Barreto MD Department of Orthopaedics Orthopaedics [address] [facility] [address] Dept: [phone] Dept September 15, 2022 CHIEF COMPLAINT: New and Pain of the Right Knee HPI Patient here today for right knee pain. She states she recently moved to the area from [place]. She was getting cortisone injections and Gel One injections into the knee. The last injection did not provide any relief. New x-ray today at [facility]. ASSESSMENT: M25.561, G89.29 Chronic pain of right knee (primary encounter diagnosis) M17.11 Primary osteoarthritis of right knee PLAN: She has had both cortisone and Gel with limited relief at this point. SHe has not been put on an NSAID and we reviewed both short term and intermediate manager possible risks. She would otherwise be a candidate for knee replacement. FOLLOW UP INSTRUCTIONS: As needed Ms. Rosalee Charles was advised as to contrast therapies and/or to take analgesics/anti-inflammatories as needed and all contraindications were reviewed. OBJECTIVE: Ms. Rosalee Charles is a pleasant 82 year old in no apparent distress. Gen:There were no vitals taken for this visit. nl development, non obese, no deformities ENT: Normocephalic, normal hearing, moist mucosa CV: Pulses:DP/PT= 2+ and symmetric, capillary refill < 2 secs, no peripheral edema/varicosities Skin: no rash, bruising or lesions. Good turgor. Psych: cooperative and appropriate, alert and oriented x 3, good mood and affect. Musculoskeletal: Patient walks with antalgia, normal station. Hip motion without pain. Knee without effusion. Patella tracks normally. There is no patellar crepitance. No pain along the medial or lateral facets. Range of motion 5-120. Positive medial, without lateral joint line pain on palpation. Ligamentous exam stable on varus and valgus stress testing at 0 and 30 degrees. Jonathan's examination is negative. Posterior drawer is negative. Negative McMurrays, without palpable click. Extremity is warm and well perfused. Sensation is grossly intact to light touch, subjectively. IMAGING: IMPRESSION: ADVANCED DEGENERATIVE CHANGES OF THE MEDIAL COMPARTMENT OF THE RIGHT KNEE JOINT. PATELLOFEMORAL DEGENERATIVE JOINT DISEASE AND JOINT EFFUSION Glass Glazier: [facility] Transcribe Date/Time: Sep 18 2022 2:08P Dictated by : ALECIA MCCAULEY MD This examination was interpreted and the report reviewed and electronically signed by: ALECIA MCCAULEY MD on Sep 18 2022 2:09PM EST Results-Findings * * *Final Report* * * DATE OF EXAM: Sep 15 2022 9:27AM [id number] [id number] - XR KNEE 4V AP/PA BOTH+LAT/ELIN RT / PROCEDURE REASON: Right knee pain, unspecified chronicity * * * * Physician Interpretation * * * * HISTORY: 82-YEAR-OLD FEMALE WITH Right knee pain, unspecified chronicity . PT STATES CHRONIC RIGHT KNEE PAIN POSSIBLE SURGERY TECHNIQUE: XR KNEE 4V AP/PA BOTH+LAT/ELIN RT Laterality: RIGHT Number of different views (projections): 4 COMPARISON: None RESULT: Right knee: Marked medial compartment joint space narrowing. Genu varus. Patellofemoral joint is narrowed laterally with medial subluxation osteophytes. A joint effusion is present. Supporting Subjective Information Below: Past Medical History: PAST MEDICAL HISTORY Diagnosis Date Disorder of bone and cartilage, unspecified Diverticulitis of colon (without mention of hemorrhage)(562.11) Internal hemorrhoids without mention of complication Past Surgical History: PAST SURGICAL HISTORY Procedure Laterality Date L'SCOPE CHOLECYSTECTOMY 05/2022 Family History: FAMILY HISTORY Problem Relation Age of Onset Heart Mother Social History: Social History Tobacco Use Smoking status: Never Smokeless tobacco: Never Vaping Use Vaping Use: Never used Medications: Current Outpatient Medications Medication Sig hydrochlorothiazide 25 mg tablet Take 1 tablet by mouth once daily. naproxen 500 mg tablet Take 1 tablet by mouth twice daily with meals. aspirin(ECOTRIN LOW STRENGTH 81 MG TAB) Take one(1) tablet daily. traZODone 50 mg tablet Take 0.5-1 tablets by mouth daily at bedtime. No current facility-administered medications for this visit. Allergies: Sulfa (Sulfonamide Antibiotics) ROS: General (negative for fatigue, malaise, weight loss/gain) HEENT (negative for headache, earache, recent vision changes, sinus pain, sore throat) Respiratory (no recent shortness of breath, hemoptysis) CV (negative for chest tightness, palpitations) Musculoskeletal (see HPI) Psych (no depression, anxiety) Hood Barreto [facility]07-10-2023 NoteHNO ID: [id number] Author: RT De(R) Service: ? Author Type: Technologist Type: Progress Notes Filed: 09/15/2022 9:29 AM Note Text: Radiology Service Progress Note PATIENT NAME: Rosalee Charles DATE OF SERVICE: September 15, 2022 TIME: 9:28 AM PATIENT IDENTITY VERIFICATION COMPLETED USING TWO (2) IDENTIFIERS: Name and Date of confirmed by patient verbally. FALL SCREENING: Has the patient had 2 falls in the last year or 1 fall with injury or currently using an Ambulatory Assistive Device (Walker, Cane, Wheelchair, Crutches, etc.)? No PATIENT GENDER DATA: Female. status: : No status: NO. PATIENT RELEVANT IMPLANT DATA REVIEWED: Not Applicable RADIOLOGY DEPARTMENT: General X-ray: Exam(s) Completed: Lower Extremity X-Ray(s): Knee, AP / Lat / Tunne / Merchant Right and Wt. Bearing PERIPHERAL IV DATA: Not applicable SIGNED BY: RT De(R) September 15, 2022 9:28 [facility]07-10-2023 History of Present illness Narrative* Hood Barreto MD - 09/15/2022 9:32 AM EDT Hood Barreto MD Department of Orthopaedics Orthopaedics [address] [facility] [address] Dept: [phone] Dept September 15, 2022 CHIEF COMPLAINT: New and Pain of the Right Knee HPI Patient here today for right knee pain. She states she recently moved to the area from [place]. She was getting cortisone injections and Gel One injections into the knee. The last injection did not provide any relief. New x- ray today at [facility]. ASSESSMENT: M25.561, G89.29 Chronic pain of right knee (primary encounter diagnosis) M17.11 Primary osteoarthritis of right knee PLAN: She has had both cortisone and Gel with limited relief at this point. SHe has not been put nasim NSAID and we reviewed both short term and penitentiary possible risks. She would otherwise be a candidate for knee replacement. FOLLOW UP INSTRUCTIONS: As needed Ms. Rosalee Charles was advised as to contrast therapies and/or to take analgesics/anti-inflammatories as needed and all contraindications were reviewed. OBJECTIVE: Ms. Rosalee Charles is a pleasant 82 year old in no apparent distress. Gen:There were no vitals taken for this visit. nl development, non obese, no deformities ENT: Normocephalic, normal hearing, moist mucosa CV: Pulses:DP/PT= 2+ and symmetric, capillary refill < 2 secs, no peripheral edema/varicosities Skin: no rash, bruising or lesions. Good turgor. Psych: cooperative and appropriate, alert and oriented x 3, good mood and affect. Musculoskeletal: Patient walks with antalgia, normal station. Hip motion without pain. Knee without effusion. Patella tracks normally. There is no patellar crepitance. No pain along the medial or lateral facets. Range of motion 5-120. Positive medial, without lateral joint line pain on palpation. Ligamentous exam stable on varus and valgus stress testing at 0 and 30 degrees. Jonathan's examination is negative. Posterior drawer is negative. Negative McMurrays, without palpable click. Extremity is warm and well perfused. Sensation is grossly intact to light touch, subjectively. IMAGING: IMPRESSION: ADVANCED DEGENERATIVE CHANGES OF THE MEDIAL COMPARTMENT OF THE RIGHT KNEE JOINT. 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 PT STATES CHRONIC RIGHT KNEE PAIN POSSIBLE SURGERY TECHNIQUE: XR KNEE 4V AP/PA BOTH+LAT/ELIN RT Laterality: RIGHT Number of different views (projections): 4 COMPARISON: None RESULT: Right knee: Marked medial compartment joint space narrowing. Genu varus. Patellofemoral joint is narrowed laterally with medial subluxation osteophytes. A joint effusion is present. Supporting Subjective Information Below: Past Medical History: PAST MEDICAL HISTORY Diagnosis Date Disorder of bone and cartilage, unspecified Diverticulitis of colon (without mention of hemorrhage)(562.11) Internal hemorrhoids without mention of complication Past Surgical History: PAST SURGICAL HISTORY Procedure Laterality Date L'SCOPE CHOLECYSTECTOMY 05/2022 Family History: FAMILY HISTORY Problem Relation Age of Onset Heart Mother Social History: Social History Tobacco Use Smoking status: Never Smokeless tobacco: Never Vaping Use Vaping Use: Never used Medications: Current Outpatient Medications Medication Sig hydrochlorothiazide 25 mg tablet Take 1 tablet by mouth once daily. naproxen 500 mg tablet Take 1 tablet by mouth twice daily with meals. aspirin(ECOTRIN LOW STRENGTH 81 MG TAB) Take one(1) tablet daily. traZODone 50 mg tablet Take 0.5-1 tablets by mouth daily at bedtime. No current facility-administered medications for this visit. Allergies: Sulfa (Sulfonamide Antibiotics) ROS: General (negative for fatigue, malaise, weight loss/gain) HEENT (negative for headache, earache, recent vision changes, sinus pain, sore throat) Respiratory (no recent shortness of breath, hemoptysis) CV (negative for chest tightness, palpitations) Musculoskeletal (see HPI) Psych (no depression, anxiety) Hood Barreto MD [facility] History of Present illness Narrative* July Rodriguez, RT(R) - 09/15/2022 9:10 AM EDT Radiology Service Progress Note PATIENT NAME: Rosalee Charles DATE OF SERVICE: September 15, 2022 TIME: 9:28 AM PATIENT IDENTITY VERIFICATION COMPLETED USING TWO (2) IDENTIFIERS: Name and Date of confirmedby patient verbally. FALL SCREENING: Has the patient had 2 falls in the last year or 1 fall with injury or currently using an Ambulatory Assistive Device (Walker, Cane, Wheelchair, Crutches, etc.)? No PATIENT GENDER DATA: Female. status: : No status: NO. PATIENT RELEVANT IMPLANT DATA REVIEWED: Not Applicable RADIOLOGY DEPARTMENT: General X-ray: Exam(s) Completed: Lower Extremity X- Ray(s): Knee, AP / Lat / Tunne / Merchant Right and Wt. Bearing PERIPHERAL IV DATA: Not applicable SIGNED BY: RT De(R) September 15, 2022 9:28 AM [facility]* Diagnosis Right knee pain, unspecified chronicity- Primary documented in this encounter [facility] note* Diagnosis Chronic pain of right knee- Primary Primary osteoarthritis of right knee Primary localized osteoarthrosis, lower leg documented in this encounter [facility] note* Diagnosis Bilateral sciatica- Primary Sciatica Primary hypertension Unspecified essential hypertension Obesity, Class I, BMI 30-34.9 Obesity, unspecified Primary osteoarthritis of right knee Primary localized osteoarthrosis, lower leg Gastroesophageal reflux disease, unspecified whether esophagitis present Disorder of bone and cartilage Disorder of bone and cartilage, unspecified Encounter for immunization Need for other specified prophylactic vaccination against single bacterial disease documented in this encounter [facility] note* Diagnosis OMARI (acute kidney injury) (HCC)- Primary Acute kidney failure, unspecified Leukocytosis, unspecified type [facility]* Diagnosis Bilateral sciatica- Primary Sciatica Chronic bilateral low back pain with bilateral sciatica Compression fracture of L1 vertebra, sequela [facility]* Diagnosis Bilateral sciatica- Primary Sciatica [facility]* Diagnosis Bilateral sciatica- Primary Sciatica [facility]* Diagnosis Right knee pain, unspecified chronicity documented in this encounter [facility] for referral (narrative)* Diagnostic Procedure Only (Routine) - Pending Review Specialty Diagnoses / Procedures Referred By Katty hernández Referred To Contact XR IMAGING Diagnoses Right knee pain, unspecified chronicity Procedures XR KNEE GENERAL 4V AP BOTH/PA BOTH/LAT/MERC RIGHT RADIOLOGIC EXAM KNEE COMPLETE 4/MORE VIEWS Hood Barreto MD [address] [place] [address] Xr Imaging Referral ID Status Reason Start Date Expiration Date Visits Requested Visits Authorized [id number] Pending Review Auto-Generat ed Referral 09/03/2022 10/03/2023 1 1 [facility] for referral (narrative)* Diagnostic Procedure Only (Routine) - Closed Specialty Diagnoses / Procedures Referred By Contac t Referred To Contact XR IMAGING Diagnoses Right knee pain, unspecified chronicity Procedures XR KNEE GENERAL 4V AP BOTH/PA BOTH/LAT/MERC RIGHT RADIOLOGIC EXAM KNEE COMPLETE 4/MORE VIEWS Hood Barreto MD [address] [place] [address] [place] [address] Referral ID Status Reason Start Date Expiration Date V isits Requested Visits Authorized [id number] Closed Auto-Generate d Referral 09/03/2022 10/03/2023 1 1 [facility] for visit Narrative* Diagnostic Procedure Only (Routine) - Closed Specialty Diagnoses / Procedures Referred By Contac t Referred To Contact XR IMAGING Diagnoses Right knee pain, unspecified chronicity Procedures XR KNEE GENERAL 4V AP BOTH/PA BOTH/LAT/MERC RIGHT RADIOLOGIC EXAM KNEE COMPLETE 4/MORE VIEWS Hood Barreto MD [address] [place] [address] [place] [address] Referral ID Status Reason Start Date Expiration Date V isits Requested Visits Authorized [id number] Closed Auto-Generate d Referral 09/03/2022 10/03/2023 1 1 [facility] Advance Directives No Advanced Directives Records FoundDocuments on File Type Date Recorded 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 Advance Directive(s) 04/23/2006 Documents on File Type Date Recorded 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 Advance Directive(s) 04/23/2006 Reason for Referral Specialty Diagnoses / Procedures Referred By Contac t Referred To Contact [facility] Diagnoses Bilateral sciatica Procedures CONSULT TO PHYSICAL THERAPY PHYSICAL THERAPY EVALUATION HIGH COMPLEX 45 MINS Saida Nicole MD [facility] [place] [address] [facility] [place] [address] [place] [id number] Referral ID Status Reason Start Date Expiration Date Visits Requested Visits Authorized [id number] Pending Review Auto-Generat ed Referral 11/05/2022 11/05/2023 1 1 Specialty Diagnoses / Procedures Referred By Contac t Referred To Contact XR IMAGING Diagnoses Bilateral sciatica Procedures XR LUMBAR GENERAL 3V AP/LAT/L5-S1 RADEX SPINE LUMBOSACRAL 2/3 VIEWS Saida Nicole MD [facility] [place] [address] Xr Imaging [facility] Referral ID Status Reason Start Date Expiration Date V isits Requested Visits Authorized [id number] Closed Auto-Generate d Referral 11/05/2022 12/05/2023 1 1 Specialty Diagnoses / Procedures Referred By Contac t Referred To Contact Pain Management Diagnoses Bilateral sciatica Chronic bilateral low back pain with bilateral sciatica Compression fracture of L1 vertebra, sequela Procedures CONSULT TO PAIN MGT OFFICE/OUTPATIENT [facility] MDM 60-74 MINUTES Saida Nicole MD [address] [place] [id number] Referral ID Status Reason Start Date Expiration Date Visits Requested Visits Authorized [id number] Pending Review PCP Requested Referral 11/07/2022 11/07/2023 1 1 Specialty Diagnoses / Procedures Referred By Contac t Referred To Contact [facility] Diagnoses Bilateral sciatica Procedures PT REHAB FOLLOW UP ORDER THERAPEUTIC EXERCISES RE, EA 15 MIN. Kyle Paige PT [facility] [address] [address] Referral ID Status Reason Start Date Expiration Date Visits Requested Visits Authorized [id number] Pending Review PCP Requested Referral Auto-Generate d Referral 11/18/2022 02/16/2023 1 1 Summary Purpose Family History No Family History Records Found Additional Source Comments Source Comments (unrecognize d section and content) In the event this informatio n is protected by the Federal Confidentiality of Alcohol and Drug Abuse Patient Records regulations: The Federal rules restrict any use of the information to criminally investigate or prosecute any alcohol or drug abuse patient.[facility] the event this information is protected by the Federal Confidentiality of Alcohol and Drug Abuse Patient Records regulations: The Federal rules restrict any use of the information to criminally investigate or prosecute any alcohol or drug abuse patient.[facility] the event this information is protected by the Federal Confidentiality of Alcohol and Drug Abuse Patient Records regulations: The Federal rules restrict any use of the information to criminally investigate or prosecute any alcohol or drug abuse patient.[facility] the event this information is protected by the Federal Confidentiality of Alcohol and Drug Abuse Patient Records regulations: The Federal rules restrict any use of the information to criminally investigate or prosecute any alcohol or drug abuse patient.[facility] the event this information is protected by the Federal Confidentiality of Alcohol and Drug Abuse Patient Records regulations: The Federal rules restrict any use of the information to criminally investigate or prosecute any alcohol or drug abuse patient.[facility] the event this information is protected by the Federal Confidentiality of Alcohol and Drug Abuse Patient Records regulations: The Federal rules restrict any use of the information to criminally investigate or prosecute any alcohol or drug abuse patient.[facility] the event this information is protected by the Federal Confidentiality of Alcohol and Drug Abuse Patient Records regulations: The Federal rules restrict any use of the information to criminally investigate or prosecute any alcohol or drug abuse patient.[facility] the event this information is protected by the Federal Confidentiality of Alcohol and Drug Abuse Patient Records regulations: The Federal rules restrict any use of the information to criminally investigate or prosecute any alcohol or drug abuse patient.[facility] the event this information is protected by the Federal Confidentiality of Alcohol and Drug Abuse Patient Records regulations: The Federal rules restrict any use of the information to criminally investigate or prosecute any alcohol or drug abuse patient.[facility] Hospital[facility] the event this information is protected by the Federal Confidentiality of Alcohol and Drug Abuse Patient Records regulations: The Federal rules restrict any use of the information to criminally investigate or prosecute any alcohol or drug abuse patient.[facility] the event this information is protected by the Federal Confidentiality of Alcohol and Drug Abuse Patient Records regulations: The Federal rules restrict any use of the information to criminally investigate or prosecute any alcohol or drug abuse patient.[facility] Hospital[facility] the event this information is protected by the Federal Confidentiality of Alcohol and Drug Abuse Patient Records regulations: The Federal rules restrict any use of the information to criminally investigate or prosecute any alcohol or drug abuse patient.[facility] Reason for Visit (unrecogniz ed section and content) Reason Comments Establish Care Reason Comments Results Reason Comments Results Reason Comments Patient Question Reason Comments PT Eval Specialty Diagnoses / Procedures Referred By Contac t Referred To Contact [facility] Diagnoses Bilateral sciatica Procedures CONSULT TO PHYSICAL THERAPY PHYSICAL THERAPY EVALUATION HIGH COMPLEX 45 MINS Saida Nicole MD [address] [place] [address] [facility] [address] [address] Referral ID Status Reason Start Date Expiration Date V isits Requested Visits Authorized [id number] Closed Auto-Generate d Referral 11/05/2022 03/08/2023 1 1 Reason Comments PT Discharge Specialty Diagnoses / Procedures Referred By Contac t Referred To Contact [facility] Diagnoses Bilateral sciatica Procedures PT REHAB FOLLOW UP ORDER THERAPEUTIC EXERCISES RE, EA 15 MIN. Kyle Paige, ANABELL [facility] [address] [address] Referral ID Status Reason Start Date Expiration Date Visits Requested Visits Authorized [id number] Authorized PCP Requested Referral Auto-Generate d Referral 11/19/2022 03/08/2023 8 8 Reason Comments F/U 3 Month Specialty Diagnoses / Procedures Referred By Contac t Referred To Contact [facility] Diagnoses 3 MO FOLLOW UP Procedures EST 4C Saida Nicole MD [address] [place] [address] Michelle Ny APRN.RALPH [address] [place] [address] Referral ID Status Reason Start Date Expiration Date Visits Requested Visits Authorized [id number] Pending Review OON/Self Pay Override 11/24/2022 05/23/2023 99 99 Care Teams (unrecognized sec tion and content) Hvac Sales Engineer Relationship Specialty Start Date End Date Saida Nicole MD [address] [facility] [place] [address] PCP - General Family Medicine 11/05/22 Hvac Sales Engineer Relationship Specialty Start Date End Date Saida Nicole MD [address] [facility] [place] [place] [address] PCP - General Family Medicine 11/05/22 Hvac Sales Engineer Relationship Specialty Start Date End Date Saida Nicole MD [address] [facility] [place] [address] PCP - General Family Medicine 11/05/22 Hvac Sales Engineer Relationship Specialty Start Date End Date Saida Nicole MD [address] [facility] [place] [place] [address] PCP - General Family Medicine 11/05/22 Hvac Sales Engineer Relationship Specialty Start Date End Date Saida Nicole MD [address] [facility] [place] [address] PCP - General Family Medicine 11/05/22 Hvac Sales Engineer Relationship Specialty Start Date End Date Saida Nicole MD [address] [facility] [place] [address] PCP - General Family Medicine 11/05/22 Hvac Sales Engineer Relationship Specialty Start Date End Date Saida Nicole MD [address] [facility] [place] [address] PCP - General Family Medicine 11/05/22 Hvac Sales Engineer Relationship Specialty Start Date End Date Saida Nicole MD [address] [facility] [place] [address] PCP - General Family Medicine 11/05/22 INFORMATION SOURCE (unrecogn ized section and content) FOR RECORDS PERTAINING TO PATIENTS WHO ARE OR HAVE BEEN ENROLLED IN A CHEMICAL DEPENDENCY/SUBSTANCEABUSE PROGRAM, SOME INFORMATION MAY BE OMITTED. This clinical summary was aggregated from multiple sources. Caution should be exercised in using it in the provision of clinical care. This summary normalizes information from multiple sources, and as a consequence, information in this document may materially change the coding, format and clinical context of patient data. In addition, data may be omitted in some cases. CLINICAL DECISIONS SHOULD BE BASED ON THE PRIMARY CLINICAL RECORDS. [facility]. provides no warranty or guarantee of the accuracy or completeness of information in this document.
[2023-03-24] MEDS: Scopolamine 1mg/72hr Patch 1 PATCH TD (06:29)
[2023-03-24] MEDS: Lactated Ringers 1,000 ML 15 ML IV (06:29)
[2023-03-24] MEDS: Magnesium 1 GM over 15 mins IV (06:29)
[2023-03-24] MEDS: Acetaminophen 500 MG Tablet 1000 MG PO ×2 (06:30→14:14)
[2023-03-24] MEDS: Gabapentin 600 MG Tablet PO (06:30)
[2023-03-24 06:55] LABS: Bedside Glucose 149 mg/dL (74-106)
--- NOTE | 2023-03-24 07:29 | HP.PCM_ITS ---
History and Physical Date of Admission: 03/24/23 [facility] [address] [place] [address] OFFICE VISIT Date of Service: 02/09/23 MR#: [id number] Acct: [id number] Name: ERICK BASSETT Rep #: [id number] : 1940 Provider: Dr. Peter Mac DO Age/Sex: 82/F Location: [facility] – [place].CHRISTA Status: Signed Intake Vital Signs 02/09/2310:30 Height 5 ft Weight: 156 lb BMI 30.4 Intake Visit Reasons: RIGHT KNEE Chief Complaint: Right knee pain Cert Occupational Therapy Asst Required: No Accompanied by: Self Is patient in pain?: Yes Pain scale (1-10): 4 Allergies Sulfa (Sulfonamide Antibiotics) Allergy (Verified 02/09/23 10:18) PT UNSURE OF REACTION Medications acetaminophen 325 mg tablet (Tylenol) 650 mg PO Q6H PRN 02/09/23 [History Confirmed 02/09/23] aspirin 81 mg tablet,delayed release (Adult Aspirin Regimen) 81 mg PO DAILY 02/09/23 [History Confirmed 02/09/23] glucosamine-chondroitin 500 mg-400 mg tablet (Cosamin DS) 1 tab PO DAILY 02/09/23 [History Confirmed 02/09/23] losartan 50 mg tablet 50 mg PO DAILY 02/09/23 [History Confirmed 02/09/23] naproxen 500 mg tablet 500 mg PO BID 02/09/23 [History Confirmed 02/09/23] PFSH Medical History (Updated 02/09/23 @ 12:[address] Peter Mac DO) Fracture of lumbar spine Surgical History (Updated 02/09/23 @ 10:21 by Ame Aguirre) History of cholecystectomy Social History (Updated 02/09/23 @ 10:22 by Ame Aguirre) Smoking Status: Never smoker alcohol intake: never what type of physical activity do you participate in: none HPI RIGHT KNEE Details: This documentation accurately reflects the service provided and the decisions made by me, Dr. Peter Mac DO 02/09/23 1015. Part of today?s visit was documented by Aem Aguirre LPN, acting as scribe. ERICK BASSETT is a 82 year old F here today for right knee pain. Rates pain 4 out of ten today after taking naproxen. Describes pain as a constant sharp and aching pain, worse when laying down at night. Started 7-8 years ago. Initially tried steriod and gel shots that have lost effectiveness over time. Most recent steroid shot was in Nov, 2022. No known injury. She has tried viscosupplementation injections previously. She takes naprosyn for pain. Hx sciatica, scoliosis, arthritis and lumbar fx. Constant numbness and tingling BLE, L>R. Numbness to toes. Ortho Exam General General: Yes no acute distress Neurologic: Yes alert and Yes oriented x3 Psychologic: Yes reasonable and appropriate Right Knee Skin/Wound: Yes CDI, No erythema, No ecchymosis and No swelling Knee ROM: Yes ROM-Extension -20 to 0 and Yes ROM-Flexion 0-140 (122) Examination: Yes Med jt line tenderness Stability: NML: Anterior Drawer, NML: Posterior Drawer, NML: Valgus 0, NML: Valgus 30, NML: Varus 0 (fixed varus) and NML: Varus 30 Patella Translation: 1 KNEE: no swelling. good ankle range of motion. Left Knee Patella Translation: 1 Head: Normocephalic Atraumatic Chest: symmetrical rise, non-labored breathing, no audible wheeze Abdomen: no guarding, non-rigid Supplemental Info 02/09/2023 x-ray right knee: [id number] medial compartment arthritis varus deformity' Coding Level of Care Code Off vis,new,level 3 Diagnoses Primary osteoarthritis of right knee M17.11 Osteoarthritis type: primary Assessment and Plan Assessment and Plan (1) Right knee DJD: Status: Acute Qualifiers: Osteoarthritis type: primary Qualified Code(s): M17.11 - Unilateral primary osteoarthritis, right knee Orders: Orders Knee 4 or More Views Today M25.561 - Pain in right knee Plan Educated the patient about the anatomy of the knee and etiology of her pain. Spoke with her about having knee osteoarthritis. Explained her options- injections, physical therapy, bracing or a total knee arthroplasty. She has tried and failed conservative options. Spoke with her about a total knee arthroplasty procedure, recovery, risks and benefits. Risks, benefits and alternatives of surgery reviewed including but not limited to bleeding, infection, nerve, artery and/or tissue damage, fracture, VTE, mechanical feel of the knee, continued pain, stiffness and expected post-operative course. She will be on a blood thinner post op to help with blood clot risks. She will also have compression stockings. Spoke with her about a mechanical feel post op. Explained the recovery period and she may take up to 2 years to fully heal. Spoke with her about the importance of physical therapy to prevent stiffness. She will have a patch of numbness over her lateral knee. Patient will be a same day surgery as she has assistance at home and no stairs. She does feel comfortable with this plan. Patient will have spinal anesthesia if able and twilight. She should not have any dental work within 6 weeks post op, but will need an antibiotic prior to any dental week for a year post op. Spoke with the patient about an iovera procedure which helps decrease narcotic use post op. She will need a CT for the makoplasty. Tentative surgery date March 24, 2023 SDS Follow up for iovera procedure or sooner if pain, swelling, numbness or associated symptoms, or concerns develop. All questions answered. Patient in agreement of plan. 02/09/23 1224 <Electronically signed by Peter Mac DO> Date Peter Mac DO Cosigner Signature: Date (if applicable) CC: ~ I have examined the patient and the H&P has been reviewed. There are no clinical changes since date of exam.
[2023-03-24] MEDS: Cefazolin 2 GM in 0.9% Normal Saline (100mL Bag) 100 ML IV (08:02)
[2023-03-24] MEDS: TXA 1000mg in NS100 100ml (IVPB at Incision) 660 MG IV (08:15)
[2023-03-24] MEDS: dexAMETHasone 10 MG/ML Vial IV (08:15)
[2023-03-24] MEDS: TXA 1000mg in NS100 100ml (IVPB at Closure) 660 MG IV (08:37)
[2023-03-24] MEDS: 0.9% Normal Saline (Pres. free 10 ML Vial (09:20)
[2023-03-24] MEDS: Bupivacaine 0.5% PF 10 ML VIAL (09:20)
[2023-03-24] MEDS: Epinephrine (1 mg/ml) 1 MG/ML VIAL (09:20)
[2023-03-24] MEDS: dexAMETHasone 4 MG/ML Vial (09:20)
--- NOTE | 2023-03-24 10:19 | RAD_ITS ---
STUDY: X-RAY - RIGHT KNEE REASON FOR EXAM: Female, 82 years old. Postop in PACU -- in PACU TECHNIQUE: 2 view(s) of the knee. COMPARISON: Comparison is made with prior study dated February 09, 2023. FINDINGS: Normal visualized distal femur. Normal visualized proximal tibia and fibula. Normal proximal tibiofibular articulation. The patient is status post total knee replacement. There is good alignment. Postoperative soft tissue changes. RAD/Knee 1 or 2 Views IMPRESSION: Status post total knee replacement. There is good alignment. Postoperative soft tissue changes. Electronically Signed: Omi Rooney MD at 12:12 EST ,
--- NOTE | 2023-03-24 10:20 | OP.PCM_ITS ---
Operative Report Date of Procedure: 03/24/23 Preoperative diagnosis: Right knee DJD Postoperative diagnosis: Same Procedure: Right total knee arthroplasty CT guided Robotic Assisted Implant: [place] triathlon cemented, femoral component size 4,cemented tibial baseplate size 4, cemented asymmetric patella size 32, polyethylene X3 size 9 CS Anesthesia: Spinal with adductor canal block Tourniquet time: 11 minutes at 300 mmHg Complications: None Condition: Stable to PACU Estimated blood loss: 175 cc Indication for procedure: This is a 82-year-old female with long standing degenerative joint disease of the knee who has failed conservative treatment and wished to proceed with elective total knee arthroplasty. Risk benefits and alternatives were reviewed including; risk of bleeding, infection, nerve artery and tissue damage, continued pain, postoperative stiffness, venous thromboembolism, need for postoperative rehabilitation, mechanical feel to the knee, and expected postoperative course. The pre- operative CT and templating was performed with component sizing. Procedure: The patient was met in the preoperative holding area. The operative extremity was identified by both patient and physician and was marked. Patient was met by anesthesia. An adductor canal block was placed by anesthesia postoperatively the patient was brought back to the operating room on a wheeled cart and transferred to the operating table in the supine position. Anesthesia was started. A well-padded tourniquet was placed on the operative extremity. The patient was prepped and draped in the usual sterile fashion. A timeout was called to ensure the proper patient procedure and extremity were being contemplated. An esmarch was used to exsanguinate the extremity. The tourniquet was inflated. A 10 blade scalpel was used to make a midline incision down through the skin and subcutaneous tissue. Skin retractors placed. Bovie and Aquamantis were used to perform meticulous hemostasis. full-thickness flaps were elevated medial and lateral along the joint capsule. A deep blade scalpel was used to perform a medial parapatellar arthrotomy. The knee was brought to full extension. A bovie was used to release the soft tissues off the most proximal aspect of the medial tibial plateau, a three-quarter inch curved osteotome was also used in this process. The infrapatellar fat pad was excised. The suprapatellar fat pad was excised partially anteriorolateraly and portion the anterioromedial pad was elevated from the femur. At this point our intra- articular femoral array was placed at a 45 degree angle proximal and posterior to the medial epicondyle. femoral checkpoint was placed at this time. Our tibial array was placed greater than 1 hands breath below the incision at a 20 degree angle stab incisions were made with a 15 blade scalpel and pins were placed and attached to the tibial array , tibial checkpoint was placed in the proximal tibial metaphysis. Tourniquet was let down. At this point registration collins were taken throughout the knee . Once the knee was registered we then tensioned the medial and lateral ligaments in extension and 90 degrees of flexion. We then used these numbers to adjust our components within parameters to balance the knee in both flexion and extension once this was done on our monitor we then proceeded with using the robotic arm to make our tibial plateau cut, anterior and posterior chamfer and distal femur cuts. we removed the cut fragments with the use of a bovie and Marlene, we did use a lamina technician anatomic pathology to insure we visualized and removed all posterior osteophytes and at this time also used the Aquamantis on the posterior joint capsule. we then trialed and achieved the desired plan with a well-balanced knee. we used the green probe to marc the corresponding tibial rotation based on our CT template. Lug holes were drilled in the femur the tibia preparation was completed with the appropriate sized base plate pinned based on previous rotation marc. An appropriate sized fin punch was used on the tibia and the patella was prepared by first using a caliper to ensure sufficient bone stock and a patellar reamer to remove the desired amount of bone. lug holes drilled for an asymmetric poly. We then brought the knee through range of motion with excellent patellar tracking. We thoroughly irrigated the knee. Trial components were removed a posterior capsular injection was preformed with our standard cocktail. In addition the aqua Mantis was also used to aid in hemostasis. . Components were cemented and placed in standard fashion. Betadine rinse was allowed to sit and washed out completely. Aricept rinse was then used followed by several more liters of irrigation after it was allowed to sit. The joint capsule was closed with #1 Ethibond [id number] in the upper part of the arthrotomy and #1 Vicryl in the lower part of the arthrotomy. , Followed by 2-0 Vicryl in the subcutaneous tissues with mara in the skin. Arrays and checkpoints were removed prior to closure all counts were correct stab incisions were closed with a staple standard dressing in the form of Mepilex AG for the main incision and a small Mepilex over the pin holes. Thigh- high RUTHY hose applied over top of dressing. Patient tolerated the procedure well and was directed to PACU in stable condition . There were no intraoperative complications.
--- NOTE | 2023-03-24 10:25 | DCINST_ITS ---
Discharge Instructions Diet Discharge Diet: No restrictions Activity Weight Bearing Status: Full weight bearing Dressing / Incision Call your doctor if you observe: Shortness of breath and Chest pain Additional Dressing/Incision Instructions:: Ice and elevate lower extremities 2 weeks while not ambulating. Ambulation is encouraged. Weight bearing as tolerated. Use assistive devise for stability. Encourage FULL knee extension and flexion 1 time EVERY time you get up and down and MULTIPLE times per day. No showering until 72 hours after surgery. Begin showering postop day #3. Remove the dressing prior to shower and gently wash with warm water and antibacterial soap then pat dry and place abdominal pad (or plain gauze) and RUTHY hose over top. This is to be done daily. Do not submerge for 3 weeks. If not showering daily after the initial 72 hours then you must clean incision and change dressing daily. Do not allow animals near the incision area. Keep clean. Follow anti-coagulation recommendations as prescribed. Do not take any NSAIDs while on blood thinner. Do not take any additional narcotic pain medication other than what was prescribed on your surgery day without discussing with physician. Narcotic medication can be addictive. Do not drink alcohol while taking narcotics. Supplement narcotic prescription with acetaminophen 1000 mg 4 times a day. Start physical therapy. If you are not currently scheduled for physical therapy or you are unsure of appointment time please call office [facility] to arrange. Call Dr. Mac with any concerns. Follow Up Care Please Follow Up With: Peter Mac DO When: 2 weeks Test Results: Test results from this visit will be discussed in further detail at your follow- up appointment, if applicable. Discharge Plan Admission Primary Reason for Your Visit: Right total knee arthroplasty Attending Provider: Peter Mac Primary Care Provider: Finesse Nicole Discharge Orders/Prescriptions Prescriptions: New acetaminophen [acetaminophen] 500 mg tablet 1,000 mg PO Q6H PRN Qty: 100 0RF cephalexin [cephalexin] 500 mg capsule 1,000 mg PO Q8 Qty: 4 0RF Rx Instructions: take 2 tabs at 9:00 pm and 2 tabs after 5 am when you wake up oxycodone 5 mg tablet 2.5 - 10 mg PO Q4H PRN (Reason: pain) 7 Days Qty: 60 0RF Eliquis 2.5 mg tablet 2.5 mg PO BID Qty: 28 0RF Rx Instructions: Begin morning after surgery Continued losartan 50 mg tablet 50 mg PO DAILY glucosamine-chondroitin [Cosamin DS] 500-400 mg tablet 1 tab PO DAILY omeprazole 20 mg capsule,delayed release(DR/EC) 20 mg PO DAILY Held aspirin [Adult Aspirin Regimen] 81 mg tablet,delayed release (DR/EC) 81 mg PO DAILY Hold Instructions: Resume on 03/31/23. Discontinued acetaminophen [Tylenol] 325 mg tablet 650 mg PO Q6H PRN (Reason: pain) Other Ambulatory Orders: 12 Lead EKG (Routine) Timeframe: [id number] Location: None Selected Ordered By: Dr. Peter Mac Referrals / Follow Up: Finesse Nicole MD [Primary Care Provider] - Disposition Disposition (needs filled in before D/C Order can be placed): Home, Self Care
[2023-03-24] MEDS: Cefazolin 1 GM/50 ML BAG IV (12:17)
--- NOTE | 2023-03-24 13:45 | SUR.PHASEII ---
Ambulated in hallway by PT, Janki, and RN using walker, patient still has leg weakness especially on right, not yet cleared for d/c home. VSS. Will give additional time for spinal to wear off. Incontinent large amount urine.
[2023-03-24] MEDS: oxyCODONE 5 MG Tablet PO ×2 (14:14→15:23)
== END 2023-03-24 15:40 | disposition home or self-care (01) ==
LOC: SDC 05:53 → AC 05:53
PROVIDERS: Anesthesiology; PCP Family Medicine; Referring Provider Orthopaedic Surgery; Visit Provider Orthopaedic Surgery
PROC: 0SRC0JZ Replacement of Right Knee Joint with Synthetic Substitute, Open Approach (ICD-10-PCS; CPT 27447; principal; 2023-03-24 07:30)
DX: M17.11 Unilateral primary osteoarthritis, right knee (principal); I10 Essential (primary) hypertension; Z90.49 Acquired absence of other specified parts of digestive tract; Z87.448 Personal history of other diseases of urinary system; Z79.82 Long term (current) use of aspirin; M25.561 Pain in right knee; Z79.899 Other long term (current) drug therapy
CPT/HCPCS: 27447; 01402; 64450; 36415; 73560; 80048; 82962; 82985; 83036; 83735; 85025; 85610; 85730; 86850; 86900; 86901; 87081; 88304; 88305; 88311; 93005; 97162; C1776; J7120; J2405; J3475; J3490

== ENCOUNTER 2023-04-29 10:00 | Outpatient (RCR) | payer MEDICARE, SELFPAY ==
--- NOTE | 2023-03-30 08:13 | HP.PTEVAL ---
Patient's Visit Information Visit Information Visit Information: ERICK BASSETT is a 82 year old F referred to Physical Therapy by Dr. Peter Mac DO with a diagnosis of R total knee arthroplasty DOS: 03/24/23. Date of Evaluation: 03/27/23 Physical Therapist: Shai Linares DPT Visit Plan Frequency: 3x /Week Duration: 6 Weeks Plan: 1) Address quad strength/review HEP 2) Stretching/PROM. Progress towards end range stretching. 3) Gait with LRD measure patellar girth and 6 suprapatellar girth (HEP: walking, seated heel slides, long sitting quad sets) Subjective Subjective: Pt is an 82 year old female who underwent R TKA 03/24/2023. She presents in a w/c with her daughter and spouse. Pt reports some calf pain and bruising in her RLE. Pt has family support while recovering from sx, but is normally independent with all ADLs and uses no AD. Pt reports 9/10 today and is taking pain medication every 2 hours. Pt has the goal to be able to walk better and farther with less pain. Pt reports sleeping okay and is able to get up to go to the bathroom using her FWW, dtr confirmed that pt has been consistent performing exercises given to her from inpatient PT. Pain Right Knee: Pain Intensity (Out of 10): 9 Pain Intensity Range: 7 and 9 Objective Objective: MMT: Flex L 21.3 R 10.0, EXT L 22.4 R 4.0 ROM: R knee ext lacking 19 deg AROM, PROM lacking 17 deg R knee flex 55 deg AROM, 60 deg PROM OBSERVATIONS: removed bandage and applied aquacell bandage, incision had some bleeding but good coloring, mara PALPATION: tenderness behind R knee with bruising, no redness or other indication of DVT (pt and dtr educated to go get doppler test if calf pain continues) TU:46 with FWW GAIT: antalgic gait with severely decreased R hip and knee flex, ABD heel strike using FWW Balance/Special Test Scores WOMAC Total Score: 96 WOMAC Percentatge: 0 Goals Goal 1:: STG: Pt will be I with HEP, performing at least once for 5/7 days of the week Goal Time Frame: 2 Weeks Goal 2:: Pt will achieve <12s during TUG with no AD to demonstrate low fall risk and improved mobility Goal Time Frame: 6-8 Weeks Goal 3:: Pt will report <2/10 pain with movement to increase tolerance to ADLs and recreational act Goal Time Frame: 4-6 Weeks Goal 4:: Pt will be able to ambulate 300+ feet with no AD and normalized gait pattern Goal Time Frame: 4-6 Weeks Goal 5:: Pt will demonstrate symmetrical girth between both knees to indicate decreased swelling and edema Goal Time Frame: 4-6 Weeks Rehabilitation Potential Physical Therapy Diagnosis: Pt presents with R knee pain and decreased ROM and strength secondary to R TKA 3 days ago. Pt is appropriate for PT to address pain, gait abnormalities, improve LE ROM and strength, and to return to I ADLs with no AD per PLOF. Rehabilitation Potential: Excellent Anticipated Interventions Patient/Client Instruction: Educate patient on: Plan of Care For the Purpose of:: To decrease pain, To increase ROM, To increase tolerance to activity/condition/position, To improve performance and independence with ADL's, To improve ability to perform tasks related to life management and To improve tolerance to ADL's Therapeutic Exercise to Include: Strength training, Endurance training, Balance training, Flexibilty training, Gait and locomotor training and Neuromotor development For the Purpose of:: To decrease pain, To decrease swelling/inflammation, To increase ROM, To improve muscle performance and motor function, To improve ability to perform ADL's, To increase tolerance to activity/condition/position, To improve performance and independence with ADL's, To decrease level of supervision to perform tasks, To improve ability of physical actions for home/community/work/leisure, To improve gait and locomotor functions, To decrease soft tissue restriction, To increase flexibility/ROM, To improve endurance, To improve balance, To improve safety with gait, To improve safety, To improve decision making, To improve self management, To prevent re-injury, To improve ability to perform tasks related to life management and To improve tolerance to ADL's Manual Therapy Techniques to Include: Mobilization, Passive ROM and Soft tissue mobilization For the Purpose of:: To decrease pain, To decrease swelling/inflammation, To increase ROM, To decrease soft tissue restriction, To increase flexibility/ROM, To improve ability to perform tasks related to life management and To improve tolerance to ADL's Cryotherapy (ice pack, ice massage): Yes Vasopneumatic device: Yes For the Purpose of:: To decrease pain, To decrease swelling/inflammation, To increase ROM, To improve nutrient delivery to tissue, To improve muscle performance and motor function, To improve ability to perform ADL's and To improve ability to perform tasks related to life management Text: Thank you for the opportunity to evaluate your patient. For Medicare and Medicare HMO plans, please review the plan of care and approve it. It will need to be FAXED BACK to us at [phone] for Medicare purposes. For Medicare only, by signing this I certify the plan of care. Please let me know if there are questions or concerns regarding this plan of care. Physician Signature: Date:
--- NOTE | 2023-06-16 09:37 | HP.PTDCNRP_ITS ---
Patient Information Patient Information: ERICK BASSETT was seen in my office for initial evaluation on 03/27/23. The following Plan of Care was established for this patient: POC Established Initial Frequency: 3x /Week Initial Duration: 6 Weeks Anticipated Interventions Patient/Client Instruction: Educate patient on: Plan of Care For the Purpose of:: To decrease pain, To increase ROM, To increase tolerance to activity/condition/position, To improve performance and independence with ADL's, To improve ability to perform tasks related to life management and To improve to lerance to ADL's Therapeutic Exercise to Include: Strength training, Endurance training, Balance training, Flexibilty training, Gait and locomotor training and Neuromotor devel opment For the Purpose of:: To decrease pain, To decrease swelling/inflammation, To increase ROM, To improve muscle performance and motor function, To improve ability to perform ADL's, To increase tolerance to activity/condition/position, To improve performance and independence with ADL's, To decrease level of supervision to perform tasks, To improve ability of physical actions for home/community/work/leisure, To improve gait and locomotor functions, To decrease soft tissue restriction, To increase flexibility/ROM, To improve endurance, To improve balance, To improve safety with gait, To improve safety, To improve decision making, To improve self management, To prevent re-injury, To improve ability to perform tasks related to life management and To improve tolerance to ADL's Manual Therapy Techniques to Include: Mobilization, Passive ROM and Soft tissue mobilization For the Purpose of:: To decrease pain, To decrease swelling/inflammation, To increase ROM, To decrease soft tissue restriction, To increase flexibility/ROM, To improve ability to perform tasks related to life management and To improve tolerance to ADL's Cryotherapy (ice pack, ice massage): Yes Vasopneumatic device: Yes For the Purpose of:: To decrease pain, To decrease swelling/inflammation, To increase ROM, To improve nutrient delivery to tissue, To improve muscle performance and motor function, To improve ability to perform ADL's and To improve ability to perform tasks related to life management Last Seen Last Seen: This patient was last seen in our office 04/29/23. Pertinent comments regarding their Physical therapy will appear below: Pt. was seen in PT for her TKA. Pt. at her last visit was doing well. She has not been back to PT in ~6 weeks and will be DC from PT at this point in time. At this point I will be discontinuing this patient from physical therapy. I would be happy to see this patient again in the future if found appropriate by the physician. Thank you! Shai Linares, DPT Balance/Gait/Functional tests Balance/Special Test Scores Functional Gait Assessment Score: 25 % Disability: 16.6700 WOMAC Total Score: 96 WOMAC Percentage: 0
== END 2023-04-29 19:00 | disposition home or self-care (01) ==
LOC: PT 10:00
PROVIDERS: PCP Family Medicine; Referring Provider Orthopaedic Surgery; Visit Provider Orthopaedic Surgery
DX: M17.11 Unilateral primary osteoarthritis, right knee (principal); Z96.651 Presence of right artificial knee joint
CPT/HCPCS: 97110; 97161; 97530

== ENCOUNTER → 2023-06-08 | Outpatient (CLI) | payer MEDICARE, SELFPAY ==
--- NOTE | 2023-06-08 13:30 | RAD_ITS ---
STUDY: X-RAY - ABDOMEN/PELVIS REASON FOR EXAM: Female, 83 years old. Abdominal pain. TECHNIQUE: Single AP view of the abdomen / pelvis on 4 images. COMPARISON: None. FINDINGS: Normal visualized lung bases. Normal bowel gas pattern with air seen to the rectosigmoid. Moderate to marked amount of feces in the colon. The visualized liver, spleen and kidneys are grossly normal in size and morphology. Normal soft tissue structures. Osteopenia with moderate lower thoracic and lumbosacral spondylosis with scoliosis. RAD/Abd Inc Decub and/or Erect IMPRESSION: No acute abnormality of the abdomen or pelvis. Electronically Signed: Maxi Ceja MD at 13:42 EDT ,
== END | disposition home or self-care (01) ==
LOC: MTRAD 13:27
PROVIDERS: PCP Family Medicine; Referring Provider Family Medicine; Visit Provider Family Medicine
DX: R10.9 Unspecified abdominal pain (principal)
CPT/HCPCS: 74019

== ENCOUNTER 2023-08-10 08:52 | Outpatient (CLI) | payer MEDICARE, SELFPAY ==
[2023-08-10 10:32] LABS: Absolute Lymphocyte Count 2.86 X10^3/uL (0.83-4.51); Absolute Neutrophil Count 4.7 X10^3/uL (2.0-7.7); Basophil# 0.07 X10^3/uL; Basophil% 0.8 % (0-1); Eosinophil# 0.44 X10^3/uL; Hematocrit 35.3 % (37-47); Hemoglobin 11.7 g/dL (12.0-15.0); Lymphocyte # 2.86 X10^3/ul (0.83-4.51); Lymphocyte % 32.6 % (19-41); Mean Corp Hgb Conc 33.1 g/dL (32-36); Mean Corpuscular Volume 78.4 fL (81-99); Mean Platelet Vol. 10.9 fl (6.2-12.0); Monocyte# 0.67 X10^3/uL; Monocyte% 7.6 % (0-10); NRBC Flagged by Analyzer 0 % (0-5); Neutrophil # 4.68 X10^3/uL (2.7-7.7); Neutrophil % 53.4 % (47-70); Platelet Count 285 K/mm3 (150-450); RBC Distribution Width SD 42.4 fl (35.1-43.9); White Blood Count 8.8 K/mm3 (4.4-11.0)
[2023-08-10 11:20] LABS: Vitamin D,25 Hydroxy 35.2 ng/mL
[2023-08-10 12:45] LABS: AST(SGOT) 16 U/L (15-37); Alanine Aminotransfer ALT/SGPT 12 U/L (13-56); Albumin, Serum 3.4 g/dL (3.2-5.0); Alkaline Phosphatase 85 U/L (45-117); Anion Gap 5 (5-15); BUN 20 mg/dL (7-18); Calcium,Total 9.3 mg/dL (8.5-10.1); Chloride 108 mmol/L (98-107); Cholesterol 171 mg/dL (200); Creatinine, Serum 1.05 mg/dL (0.55-1.02); EST Glomerular Filtration Rate 53 mL/min (>60); Est Glom Filt Rate - Afr Amer 64 mL/min (>60); Globulin 3.5 g/dL (2.2-4.2); Glucose 85 mg/dL (74-106); High Density Lipoprotein 44 mg/dL; Potassium 4.4 mmol/L (3.5-5.1); Protein, Total 6.9 g/dL (6.4-8.2); Sodium Level 139 mmol/L (136-145); Triglycerides 127 mg/dL; Very Low Density Lipoprotein 25 mg/dL (5-40)
== END 2023-08-10 23:59 | disposition home or self-care (01) ==
PROVIDERS: PCP Family Medicine; Referring Provider Family Medicine; Visit Provider Family Medicine
DX: I10 Essential (primary) hypertension (principal); M19.90 Unspecified osteoarthritis, unspecified site
CPT/HCPCS: 36415; 80053; 80061; 82306; 85025

== ENCOUNTER → 2023-09-19 | Outpatient (CLI) | payer MEDICARE, SELFPAY ==
--- NOTE | 2023-09-19 08:54 | MRI_ITS ---
STUDY: MRI LUMBAR SPINE WITHOUT CONTRAST REASON FOR EXAM: Female, 83 years old. Pain TECHNIQUE: Standardized fat and water weighted pulse sequences were obtained in the sagittal and axial planes. COMPARISON: X-ray 08/24/2023 FINDINGS: T12-L1: Mild bilobed disc protrusion with 2 mm retropulsion of the superior endplate of L1 into the spinal canal produces mild spinal stenosis and mild bilateral neural foraminal stenosis. Normal lumbar lordosis. Mild dextroscoliosis centered at L2. Normal conus medullaris that terminates at the L1. Mild loss of height and wedging deformity of the T11 vertebral body and moderate loss of height wedging deformity of the L1 vertebral body without marrow edema consistent with chronic compression fractures.. L1-2: Mild bilateral facet hypertrophy and severe ligament flavum hypertrophy. Mild bilobed disc protrusion produces mild spinal stenosis and mild bilateral neural foraminal stenosis. L2-3: Severe ligament flavum hypertrophy. Severe loss of disc height with a mild bilobed disc protrusion produces mild spinal stenosis and mild bilateral neural foraminal stenosis. L3-4: Mild bilateral facet hypertrophy and severe ligament flavum hypertrophy. Moderate bilateral disc protrusion produces moderate spinal stenosis with moderate bilateral lateral recess stenosis, mild right neural foraminal stenosis and moderate left neural foraminal stenosis. L4-5: Severe bilateral facet hypertrophy and ligament flavum hypertrophy. 8 mm of anterolisthesis of L4 on L5 with a moderate broad disc protrusion produces severe spinal stenosis, severe right neural foraminal stenosis with effacement of the right L4 nerve root and moderate left neural foraminal stenosis about the left L4 nerve root. L5-S1: Mild bilateral facet hypertrophy and severe ligament flavum hypertrophy. Moderate broad disc protrusion is moderate focal stenosis and moderate bilateral neural foraminal stenosis. Normal visualized sacral ala. Mild friction related edema in the posterior subcutaneous fat. MRI/Spine Lumbar (Routine) IMPRESSION: Mild dextroscoliosis with degenerative disc disease as described above. Electronically Signed: Nilo Mckeon MD at 9:28 EDT ,
== END | disposition home or self-care (01) ==
PROVIDERS: PCP Family Medicine; Referring Provider Orthopaedic Surgery Orthopaedic Surgery of the Spine; Visit Provider Orthopaedic Surgery Orthopaedic Surgery of the Spine
DX: M43.06 Spondylolysis, lumbar region (principal)
CPT/HCPCS: 72148

== ENCOUNTER → 2023-11-05 | Outpatient (CLI) | payer MEDICARE, SELFPAY ==
--- NOTE | 2023-11-05 11:19 | RAD_ITS ---
STUDY: X-RAY - RIGHT SHOULDER REASON FOR EXAM: Female, 83 years old. injury TECHNIQUE: 4 view(s) of the shoulder. COMPARISON: None. FINDINGS: There is severe degenerative arthrosis of the glenohumeral articulation. Normal acromioclavicular joint. Normal acromion. Bulky osteophyte formation is present at the medial aspect of the humeral head. Subchondral cystic and sclerotic changes are present in the glenoid. The soft tissue structures are unremarkable. There is no demonstrated fracture. Normal visualized pulmonary apex. RAD/Shoulder min 2 Views IMPRESSION: 1. No acute fracture. Severe DJD Electronically Signed: James Spence MD at 8:17 EDT ,
== END | disposition home or self-care (01) ==
PROVIDERS: PCP Family Medicine; Referring Provider Family Medicine; Visit Provider Family Medicine
DX: S49.91XA Unspecified injury of right shoulder and upper arm, initial encounter (principal)
CPT/HCPCS: 73030

== ENCOUNTER → 2023-11-25 | Outpatient (CLI) | payer MEDICARE, SELFPAY ==
--- NOTE | 2023-11-25 08:51 | BD_ITS ---
STUDY: DUAL ENERGY X-RAY ABSORPTIOMETRY / DXA REASON FOR EXAM: Female, 83 years old. V78.0 TECHNIQUE: Bone Mineral Density (BMD) measurements of lumbar spine and bilateral hips were obtained. COMPARISON: None. FINDINGS: Lumbar Spine (L1-L4): g/cm2 (0.821) / T-score (-1.7) / Z-score (1.0) Findings are suggestive of osteopenia with a moderate fracture risk. Left Femur Total: g/cm2 (0.662) / T-score (-2.3) / Z-score (0.0) Left Femoral Neck: g/cm2 (0.457) / T-score (-3.5) / Z-score (-1.0) Right Femur Total: g/cm2 (0.569) / T-score (-3.1) / Z-score (-0.7) Right Femoral Neck: g/cm2 (0.406) / T-score (-4.0) / Z-score (-1.5) BD/Dexa Bone Density Study IMPRESSION: The patient is considered osteoporotic as outlined below according to World Andrews Organization (WHO) criteria with a high fracture risk. Reference Information: The T-score is the number of standard deviations above or below the standard which is normal for young adults at their peak bone mineral density. The World Health Organization (WHO) interprets the T-scores as follows: Above -1 Normal bone density Between -1 and -2.5 Osteopenia Equal to / or below -2.5 Osteoporosis As a practical clinical guideline, osteopenia may be graded as follows: Mild -1 through -1.5 Moderate -1.6 through -2.0 Severe -2.1 through -2.4 The Z-score is the number of standard deviations above or below age-matched controls. A Z-score of less than -1.5 would be considered abnormal. References: 1. NIH Osteoporosis and Related Bone Diseases www osteo.org 2. International Society for Clinical Densitometry www iscd.org 3. National Osteoporosis Foundation www nof.org Electronically Signed: Omi Rooney MD at 9:29 EDT ,
== END | disposition home or self-care (01) ==
LOC: OPBD 08:39
PROVIDERS: PCP Family Medicine; Referring Provider Family Medicine; Visit Provider Family Medicine
DX: Z78.0 Asymptomatic menopausal state (principal)
CPT/HCPCS: 77080

== ENCOUNTER → 2023-12-24 | Outpatient (CLI) | payer MEDICARE, SELFPAY ==
[2023-12-29 02:07] LABS: Pancreatic Elastase, Fecal > 800 (>200)
[2023-12-29 11:09] LABS: Calprotectin, Stool 103 ug/g (0-120)
== END | disposition home or self-care (01) ==
LOC: LABSPEC 13:18
PROVIDERS: PCP Family Medicine; Referring Provider Student in an Organized Health Care Education/Training Program; Visit Provider Student in an Organized Health Care Education/Training Program
DX: K58.9 Irritable bowel syndrome, unspecified (principal); R10.9 Unspecified abdominal pain
CPT/HCPCS: 82653; 83630; 83993

== ENCOUNTER 2024-01-28 09:07 | Day surgery (SDC) | payer MEDICARE, SELFPAY ==
[2023-12-23 11:07] LABS: Absolute Lymphocyte Count 2.12 X10^3/uL (0.83-4.51); Absolute Neutrophil Count 5.4 X10^3/uL (2.0-7.7); Basophil# 0.05 X10^3/uL; Basophil% 0.6 % (0-1); Eosinophil# 0.23 X10^3/uL; Eosinophils% 2.6 % (0-5); Hematocrit 36.9 % (37-47); Hemoglobin 12.4 g/dL (12.0-15.0); Lymphocyte # 2.12 X10^3/ul (0.83-4.51); Lymphocyte % 24.4 % (19-41); Mean Corp Hgb Conc 33.6 g/dL (32-36); Mean Corpuscular Hgb 27.9 pg (27.0-32.0); Mean Corpuscular Volume 82.9 fL (81-99); Mean Platelet Vol. 10.1 fl (6.2-12.0); Monocyte# 0.76 X10^3/uL; Monocyte% 8.8 % (0-10); NRBC Flagged by Analyzer 0 % (0-5); Neutrophil # 5.44 X10^3/uL (2.7-7.7); Neutrophil % 62.7 % (47-70); Platelet Count 241 K/mm3 (150-450); RBC Distribution Width CV 14.2 % (11.6-14.6); RBC Distribution Width SD 42.5 fl (35.1-43.9); Red Blood Count 4.45 M/mm3 (4.2-5.4); White Blood Count 8.7 K/mm3 (4.4-11.0)
[2024-01-28] VITALS (7 sets, daily range): BP systolic 84–189; BP diastolic 51–91; PULSE 67–79; RESP 14–16; TEMP 36.2–36.3; O2SAT 92–98; BMI 316.4
--- NOTE | 2024-01-28 10:11 | PRE.ANES_ITS ---
ASA Classification* ASA Classification ASA Classification: 2 Assessment & Plan Anesthesia* Anesthesia Assessment Anesthesia Assessment: Discussed sedation and/or anesthesia options, risks, benefits, and alternatives with patient/parents/legal guardian/POA. Questions invited. The patient/parents/legal guardian/POA seems to understand and agrees to proceed with anesthesia plan. Reviewed the physical assessment, medical history, allergy history and patient home medications list prior to surgery/procedure/anesthetic and documented any changes. Performed airway and anesthesia risk assessments. Anesthesia Type Anesthesia Type: MAC History Source History Obtained from:: Patient and Chart Anesthesia Focused Assessment* Temperature: 97.4 F Pulse Rate: 79 Blood Pressure: 189/91 Respiratory Rate: 16 Pulse Ox: 98 Oxygen Delivery Method: Room Air Airway Assessment Mouth opens: >3 cm Mallampati Score: II Teeth Condition: Intact Neck Range of motion (ROM): Full ROM Focused Labs Anesthesia Preop lab: CBC WBC 8.7 K/mm3 (4.4-11.0) 12/23/23 10:53 RBC 4.45 M/mm3 (4.2-5.4) 12/23/23 10:53 Hgb 12.4 g/dL (12.0-15.0) 12/23/23 10:53 Hct 36.9 % (37-47) L 12/23/23 10:53 Plt Count 241 K/mm3 (150-450) 12/23/23 10:53 CHEMISTRY Potassium 4.4 mmol/L (3.5-5.1) 08/10/23 08:56 Sodium 139 mmol/L (136-145) 08/10/23 08:56 Magnesium 2.2 mg/dL (1.6-2.6) 03/13/23 08:45 BUN 20 mg/dL (7-18) H 08/10/23 08:56 Creatinine 1.05 mg/dL (0.55-1.02) H 08/10/23 08:56 Glucose 85 mg/dL (74-106) 08/10/23 08:56 POC Glucose 149 mg/dL (74-106) H 03/24/23 06:19 COAG PT 12.6 SECONDS (11.7-14.9) 03/13/23 08:45 Pre-Assessment Diagnosis/Proposed Procedure Planned Operative Procedure(s): egd Anesthesia History 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 When Was Last Pacemaker Check QUESTION #4 FULL TEXT: You/Your Family Experience fever (hyperthermia) with Anesthesia Last Oral Intake Last Oral intake: Last Oral Intake NPO since 00:00 01/28/24 09:34 Meds taken in AM with sips of water? 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 Female Yes 01/27/24 10:53 HX of Motion Sickness No 01/27/24 10:53 HX of N/V After Surgery No 01/27/24 10:53 Non-Smoker Yes 01/27/24 10:53 Duration of Surgery greater No 01/27/24 10:53 than 60 minutes Number of Risk Factors 2 01/27/24 10:53 PONV Score Moderate Risk 01/27/24 10:53 Height & Weight Height & Weight: Anesthesia: Height & Weight Height 5 ft 01/28/24 09:34 Weight: 735 kg 01/28/24 09:34 Body Mass Index (BMI) 316.4 01/28/24 09:34 Respiratory Assessment Respiratory Assessment - in flight refueling manager: Respiratory Tract Infection Hx - in flight refueling manager Hx Respiratory Tract Infection No 01/27/24 10:53 STOP Sleep Apnea STOP Sleep Apnea - in flight refueling manager: STOP Sleep Apnea - in flight refueling manager Hx Hypertension Yes: CONTROLLED WITH MED 01/27/24 10:53 Hx Sleep Apnea No 01/27/24 10:53 CPAP BIPAP Do you snore loudly (louder No 01/27/24 10:53 than talking or can be heard Do you often feel tired/ No 01/27/24 10:53 fatigued/ sleepy during daytime? Has anyone observed you stop No 01/27/24 10:53 breathing during sleep? STOP Results Negative 01/27/24 10:53 QUESTION #5 FULL TEXT : Do you snore loudly (louder than talking or can be heard through closed doors)? 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 Specify any problems Hx of Preganancy in last 3 N/A 01/27/24 10:53 Months Nurse Filling Out Transfusion NBUCHER 01/27/24 10:53 & Questions: Date: 01/27/24 01/27/24 10:53 Time: 10:54 01/27/24 10:53 Patient unable to answer at this time (ie. confused, unrespo /Reproduction History /Reproductive History - in flight refueling manager: /Reproductive Hx- in flight refueling manager Hx Now Gestational Age (in weeks): EDC: Hx Hx Para Hx Section SAB PFSH Medical History Constipation History of renal disease Restless legs GERD (gastroesophageal reflux disease) Non-smoker Fracture of lumbar spine Home Medications ?Medication ?Instructions ?Recorded ?Last Taken ?Type glucosamine-chondroitin 500 mg-400 1 tab PO DAILY 02/09/23 01/23/24 History mg tablet (Cosamin DS) losartan 50 mg tablet 50 mg PO DAILY 02/09/23 01/23/24 History acetaminophen 500 mg tablet 1,000 mg (2 x 500 mg) PO Q6H PRN 03/24/23 Unknown Rx #100 tabs tramadol 50 mg tablet 50 - 100 mg (1 - 2 x 50 mg) PO Q6H 04/01/23 01/28/24 Rx PRN pain #30 tabs sucralfate 1 gram tablet (Carafate) 1 g PO BID 12/15/23 01/23/24 History omeprazole 20 mg capsule,delayed 20 mg PO DAILY #90 caps 12/21/23 01/23/24 Rx release naproxen 500 mg tablet 500 mg PO DAILY pain 01/27/24 01/23/24 History Allergy/AdvReac Type Severity Reaction Status Date / Time Sulfa (Sulfonamide Allergy PT UNSURE Verified 01/28/24 09:32 Antibiotics) OF REACTION Surgical History History of total right knee replacement History of cholecystectomy Social History Smoking Status: Never smoker alcohol intake: current details: occasional what type of physical activity do you participate in: none Review of Systems (Anesthesia) ROS Narrative System reviewed and no additional complaints, except as documented.
--- NOTE | 2024-01-28 10:15 | EGD_PTH ---
PATIENT: ERICK BASSETT LOC: EN U#:[id number] AGE/SX: 83/F ROOM: RE01/28/[address]: Dr. Nestor Sheets DO : 1940 BED: DIS: 01/28/2024 SPEC #: [id number] RECD: 01/28/24 13:26 STATUS: MIMA THADDEUS #: [id number] DESTINEE: 01/28/24 10:[address]: Nestor Sheets DEPT: SURGICAL PATHOLOGY RECD BY: Kathie Vicente ENTERED: 01/28/24 14:31 SP TYPE: EGD BIOPSY OT DR: MD Anabella Strickland PA Tissues: Gastric mucous membrane Procedures: Surgery Specimen Level IV HEADER OPERATION: EGD with biopsy PRE-OP DIAGNOSIS: Abdominal symptoms, abdominal pain TISSUE SUBMITTED: Gastric polyp biopsy MICROSCOPIC DIAGNOSIS Gastric polyp, biopsy: Fragments of gastric mucosa with minimal changes suggestive of hyperplastic polyp and mild chronic inflammation. See comment. 01/29/2024 COMMENT The results of immunohistochemistry for Helicobacter pylori will be reported separately ([id number]). MICROSCOPIC DESCRIPTION Slides are reviewed. GROSS DESCRIPTION Received in fixative is one container labeled with the patient's name and designated Gastric polyp biopsy. The specimen consists of multiple irregular fragments of light adames soft tissue that in aggregate measure 0.6 x 0.5 x 0.1 cm. The specimen is totally submitted in one cassette. 01/28/2024 TC:5 CPT:83685
--- NOTE | 2024-01-28 10:15 | IMM_PTH ---
PATIENT: ERICK BASSETT LOC: EN U#:[id number] AGE/SX: 83/F ROOM: RE01/28/[address]: Dr. Nestor Sheets DO : 1940 BED: DIS: 01/28/2024 SPEC #: [id number] RECD: 01/28/24 13:55 STATUS: MIMA REQ #: [id number] DESTINEE: 01/28/24 10:[address]: Nestor Sheets DEPT: IMMUNOHISTOCHEMISTRY RECD BY: Chuck Rodriguez ENTERED: 01/28/24 13:55 SP TYPE: IMMUNO OTHR DR: MD Anabella Strickland PA Tissues: Gastric mucous membrane Procedures: H Pylori (initial) PHYSICIAN & [place] [id number] SPECIMEN INFORMATION: Tissue Source: Gastric polyp biopsy Clinical Info: Abdominal symptoms, abdominal pain Specimen Number: [id number] CPT code: 56867 METHODOLOGY: Deparaffinized sections of prefer/formalin-fixed tissue or PAP/DQ stained slides are incubated with monoclonal/polyclonal antibodies/oligonucleotide probes. Localization is made via biotin free immunoperoxidase method. Appropriate controls are performed and reacted as expected. Results on target cell population are indicated in the following table: RESULTS: ANTIBODY / CLONE RESULT H Pylori (polyclonal) negative These tests were developed and their performance characteristics determined by [facility]. They may not have been cleared or approved by the U.S. Food and Drug Administration. The FDA has determined that such clearance or approval is not necessary. The above immunohistochemical/dualISH markers are ordered and reviewed by the Pathologist. INTERPRETATION: Gastric polyp, biopsy: Negative for Helicobacter pylori organisms. 01/29/2024
--- NOTE | 2024-01-28 10:32 | HP.PCM_ITS ---
History and Physical Date of Admission: 01/28/24 Abdominal pain Details: ERICK BASSETT, is a 83 F who presents to the office today for establishment with [facility]. Pt has a PMHx of HTN, arthritis, gout, and s/p total knee arthroplasty. She is here today for evaluation of abdominal pain which has been going on since March 2023. In March 2023 she underwent surgery and then shortly after was diagnosed with gout. She was treated with drug therapy but is unsure which medication she took. She does also take naproxen daily for pain. The pain is sometimes worse when she eats and with laying down. She has not noticed any blood in her stool or black stools. In August 2023 she had CBC showing a low Hgb at 11.7 which was down trending from the one in March 2023. Her PCP put her on Carafate and dicyclomine which is somewhat helpful but she wants to get to the bottom of why she is having this pain. She has never had an EGD but her last colonoscopy was without abnormality and was told she did not need one again. ROS Const Constitutional: Positive for weakness; No fatigue, fever(s) or weight change ENT ENT: No difficulty swallowing Cardio Cardiology: Positive for leg pain with exertion Gastro GI: Positive for abdominal pain, change in bowel habits and excessive flatus; No belching, bloating, change in stool character, coffee ground emesis, constipation, cramping, diarrhea, heartburn, difficulty swallowing, feeling full early, incontinent of stools, Vomiting blood/hematemesis, Blood in stool, loose stools, Black,tarry stools, nausea/dyspepsia, pain with swallowing, vomiting or other Musc Musculoskeletal: Positive for joint pain, back pain, muscle cramps, muscle weakness, Arthritis, sciatica, leg pain at night and leg pain with exertion Skin Skin: No yellowing of the eye or itchy eyes Neuro Neurology: Positive for weakness Psych Psychiatric: No anxiety and No depression Endo Endocrine: No fatigue or weight change Aller/Imm Allergy/Immunologic: No itchy eyes Patric/Lymp Hematologic/Lymphatic: No easy bleeding or easy bruising Exam Const General: cooperative and comfortable Nutritional Appearance: average body habitus and well nourished HENTX Head: normal to inspection Ears: hearing grossly normal bilaterally Nose: external nose normal Face and sinus: normal facial exam Mouth: oral mucosae normal Throat: posterior oropharynx normal Eyes General: appearance normal, both eyes and all related structures Neck Neck: normal visual inspection Chest Chest palpation & inspection: normal inspection of the chest Resp Effort & Inspection: normal respiratory effort Cardio Palpation: normal PMI GI Inspection: normal to inspection Auscultation: normal bowel sounds Palpation: no hepatosplenomegaly Skin General: no rashes or lesions noted Neuro General: patient alert Extrem General: normal to inspection Psych Affect: normal affect Assessment and Plan Assessment and Plan (1) Abdominal symptoms: (2) Abdominal pain: Status: Acute Plan: Pt is an 83 yo female here today for evaluation of abdominal/epigastric pain. This has been going on since having gout in March 2023. She was prescribed a medications that she believes triggered these symptoms but is unsure the name. She does also take naproxen daily and has for around 30 years. She has no prior hx of GERD or ulcers. Her PCP prescribed her Carafate and dicyclomine which she believes is helpful to the pain. She will need to have an EGD to rule out gastric ulcer, duodenal ulcer, GERD or gastritis. SHe is agreeable to this. In the mean time she will continue PPI, Carafate and dicyclomine. -EGD -Continue Carafate, PPI and dicyclomine Orders: Orders CBC W/Diff, Automated Today D64.9 - Anemia, unspecified Pancreatic Elastase, Fecal Today R10.9 - Unspecified abdominal pain Calprotectin, Stool Today R10.9 - Unspecified abdominal pain Stool Lactoferrin/WBC Today K58.9 - Irritable bowel syndrome, unspecified, R10.9 - Unspecified abdominal pain Medications: New omeprazole 20 mg PO DAILY 90 caps 2RF I have examined the patient and the H&P has been reviewed. There are no clinical changes since date of exam.
--- NOTE | 2024-01-28 10:51 | OP.EGD_ITS ---
Patient Name: Rosalee Charles Procedure Date: 01/28/2024 10:34 AM Date of : 1940 Age: 83 Procedure: Upper GI endoscopy Indications: Functional Dyspepsia Providers: Nestor Sheets DO Referring MD: Dain Avelar Md Medicines: Monitored Anesthesia Care Patient Profile: This is an 83 year old female. Refer to note in patient chart for documentation of history and physical. Patient has symptoms of acute epigastric abdominal pain and chronic epigastric abdominal pain. Complications: No immediate complications. Procedure: Pre-Anesthesia Assessment: - Prior to the procedure, a History and Physical was performed, and patient medications and allergies were reviewed. The patient is competent. The risks and benefits of the procedure and the sedation options and risks were discussed with the patient. All questions were answered and informed consent was obtained. Patient identification and proposed procedure were verified in the pre-procedure area. Mental Status Examination: alert and oriented. Airway Examination: normal oropharyngeal airway and neck mobility. Respiratory Examination: clear to auscultation. CV Examination: normal. Prophylactic Antibiotics: The patient does not require prophylactic antibiotics. Prior Anticoagulants: The patient has taken no anticoagulant or antiplatelet agents except for NSAID medication. ASA Grade Assessment: II - A patient with mild systemic disease. After reviewing the risks and benefits, the patient was deemed in satisfactory condition to undergo the procedure. The anesthesia plan was to use monitored anesthesia care (MAC). Immediately prior to administration of medications, the patient was re-assessed for adequacy to receive sedatives. The heart rate, respiratory rate, oxygen saturations, blood pressure, adequacy of pulmonary ventilation, and response to care were monitored throughout the procedure. The physical status of the patient was re-assessed after the procedure. After obtaining informed consent, the endoscope was passed under direct vision. Throughout the procedure, the patient's blood pressure, pulse, and oxygen saturations were monitored continuously. The Endoscope was introduced through the mouth, and advanced to the second part of duodenum. The upper GI endoscopy was accomplished without difficulty. The patient tolerated the procedure well. Scope In: 10:42:15 AM Scope Out: 10:46:41 AM Total Procedure Duration Time 0 hours 4 minutes 26 seconds Findings: The examined esophagus was normal. Multiple 4 mm hyperplastic polyps with no bleeding and no stigmata of recent bleeding were found in the cardia and in the gastric fundus. The polyp was removed with a jumbo cold forceps. Resection and retrieval were complete. Verification of patient identification for the specimen was done. Estimated blood loss was minimal. No gross lesions were noted in the second portion of the duodenum. Impression: - Normal esophagus. - Multiple gastric polyps. Resected and retrieved. - No gross lesions in the second portion of the duodenum. Recommendation: - Discharge patient to home. - Resume previous diet. - Continue present medications. - Await pathology results. Procedure Code(s): --- Professional --- 53121, Esophagogastroduodenoscopy, flexible, transoral; with biopsy, single or multiple CPT copyright 2021 [employer]. All rights reserved. The codes documented in this report are preliminary and upon classroom technology technician review may be revised to meet current compliance requirements. Nestor Sheets DO 01/28/2024 10:51:02 AM This report has been signed electronically. Number of Addenda: 0 Note Initiated On: 01/28/2024 10:34 AM
--- NOTE | 2024-01-28 10:51 | OP.CCLET_ITS ---
01/28/2024 Dain Avelar Md Re : Upper GI endoscopy procedure for Rosalee Charles Dear Rosio This procedure was performed on January. My impressions and recommendations are as follows: Impressions : - Normal esophagus. - Multiple gastric polyps. Resected and retrieved. - No gross lesions in the second portion of the duodenum. Recommendations : - Discharge patient to home. - Resume previous diet. - Continue present medications. - Await pathology results. My findings are described in the full procedure note, which is enclosed. If I can be of further assistance, please feel free to contact me at . Sincerely, Nestor Sheets, 01/28/2024 10:51:02 AM This report has been signed electronically.
--- NOTE | 2024-01-28 10:54 | PCM.POST.ANE ---
Anesthesia: Postop Eval I Current Vital Signs Temperature: 97.2 F Pulse Rate: 67 Blood Pressure: 84/51 Respiratory Rate: 16 Pulse Ox: 97 Oxygen Delivery Method: Room Air Assessment Airway patent: Yes Spontaneous unlabored respirations: Yes Mental status: Asleep nausea: No Vomiting: No Anesthesia Complication: No Fluid Hydration Crystalloid volume administer (ml): 30 Total IV fluid infused: 30 Progress Note Anesthesia document: Postop Eval 1 completed: Yes
--- NOTE | 2024-01-28 15:21 | PCM.POSTANE2 ---
Anesthesia Postop Eval I Sum Postop Eval Completion status Anesthesia document: Postop Eval 1 completed: Yes Anesthesia Postop Eval I Summary Anesthesia Postop Eval I Summary: Anesthesia Postop Eval I: Assessment Summary Airway patent Yes 01/28/24 10:55 [email or web address] Spontaneous unlabored Yes 01/28/24 10:55 [email or web address] respirations Mental status Asleep 01/28/24 10:55 [email or web address] nausea No 01/28/24 10:55 [email or web address] Vomiting No 01/28/24 10:55 [email or web address] Anesthesia Postop Eval I: Fluid Summary Crystalloid volume administer 30 01/28/24 10:55 [email or web address] (ml) Colloids volume administered ( ml) Blood Product volume administered (ml) Total IV fluid infused 30 01/28/24 10:55 [email or web address] Anesthesia Postop Eval I: Summary Notes Anesthesia Complication No 01/28/24 10:55 [email or web address] Anesthesia Complication Comment: Post-operative progress note Anesthesia: Postop Eval II Evaluation Mental status: Awake and Calm Pain Level: 0 nausea: No Vomiting: No Complications Anesthesia Complication: No
== END 2024-01-28 11:41 | disposition home or self-care (01) ==
LOC: EN 09:11 → AC 09:13
PROVIDERS: Student in an Organized Health Care Education/Training Program; PCP Family Medicine; Referring Provider Family Medicine; Visit Provider Internal Medicine Gastroenterology
PROC: 0DJ08ZZ Inspection of Upper Intestinal Tract, Via Natural or Artificial Opening Endoscopic (ICD-10-PCS; CPT 43235; principal; 2024-01-28 10:10)
DX: R10.9 Unspecified abdominal pain (principal); K31.7 Polyp of stomach and duodenum; Z96.659 Presence of unspecified artificial knee joint; I10 Essential (primary) hypertension
CPT/HCPCS: 43239; 36415; 85025; 88305; 88342; A4216; J2405

== ENCOUNTER → 2024-02-08 | Outpatient (CLI) | payer MEDICARE, SELFPAY ==
--- NOTE | 2024-02-08 12:30 | MRI_ITS ---
STUDY: MRI LUMBAR SPINE WITHOUT CONTRAST REASON FOR EXAM: Female, 83 years old. SPODYLOSIS, back pain into bilateral legs x 2 yrs TECHNIQUE: Standardized fat and water weighted pulse sequences were obtained in the sagittal and axial planes. COMPARISON: MRI the lumbar spine dated September 19, 2023. FINDINGS: Normal lumbar lordosis. There is a dextroscoliosis of the lumbar spine. Normal conus medullaris that terminates at the T12-L1 level. Redemonstration of a chronic compression deformity of the L1 vertebral body with 50% loss of height and mild retropulsion. Chronic compression deformity with wedging of the T11 vertebral body redemonstrated. No lytic or blastic process is present. No new compression deformities or acute fractures are present. T12-L1: Diffuse disc desiccation with mild posterior disc space narrowing and slight annular bulging. Mild facet joint hypertrophy. Normal central canal and bilateral lateral recesses. Normal bilateral intervertebral neural foramina. L1-2: Diffuse disc desiccation with mild posterior disc space narrowing and slight annular bulging. Mild facet joint hypertrophy. Mild bilateral foraminal stenosis. Normal central canal and bilateral lateral recesses. L2-3: Severe disc space narrowing with a diffuse disc osteophyte complex. Moderate facet joint and ligamenta flava hypertrophy and mild central canal stenosis. Left paracentral disc protrusion causes left lateral recess stenosis with compression of the descending nerve root. Normal right neural foramen. Moderate left foraminal stenosis with nerve root impingement. L3-4: Diffuse disc desiccation with mild posterior disc space narrowing and annular bulging. Mild central canal stenosis. Moderate facet joint and ligament of flavum hypertrophy. Mild bilateral foraminal stenosis with nerve root impingement. L4-5: Chronic right L4 pars interarticularis defect with anterolisthesis of L4 and L5 of 1.20 cm. Severe disc space narrowing with a diffuse disc bulge. Moderate Modic endplate degenerative changes. Severe central canal stenosis with flattening of the thecal sac with a trefoil appearance and bilateral severe lateral recess stenosis with nerve root compression. Critical stenosis at this level as the opening is only 2 mm. Severe right foraminal stenosis with nerve root compression. Mild left foraminal stenosis. L5-S1: Severe disc space narrowing with a diffuse disc osteophyte complex. Left lateral recess stenosis. Moderate facet joint and ligament of flavum hypertrophy contributing to mild central canal stenosis. Moderate to severe bilateral foraminal stenosis with nerve root compression. Normal visualized sacral ala. There is mild paraspinal muscular atrophy. MRI/Spine Lumbar (Routine) IMPRESSION: 1. Multilevel moderate to severe degenerative changes, as described above. 2. Severe central canal stenosis which is critical at the L4-L5 level. Electronically Signed: James Spence MD at 11:22 EST ,
== END | disposition home or self-care (01) ==
PROVIDERS: PCP Family Medicine; Referring Provider Anesthesiology Pain Medicine; Visit Provider Anesthesiology Pain Medicine
DX: M54.16 Radiculopathy, lumbar region (principal)
CPT/HCPCS: 72148

== ENCOUNTER → 2024-05-30 | Outpatient (CLI) | payer MEDICARE, SELFPAY ==
[2024-05-30 15:27] LABS: Absolute Lymphocyte Count 2.26 X10^3/uL (0.83-4.51); Absolute Neutrophil Count 6.1 X10^3/uL (2.0-7.7); Basophil# 0.09 X10^3/uL; Basophil% 0.9 % (0-1); Eosinophil# 0.37 X10^3/uL; Eosinophils% 3.8 % (0-5); Hematocrit 37.2 % (37-47); Hemoglobin 12.7 g/dL (12.0-15.0); Lymphocyte # 2.26 X10^3/ul (0.83-4.51); Mean Corp Hgb Conc 34.1 g/dL (32-36); Mean Corpuscular Hgb 27.5 pg (27.0-32.0); Mean Corpuscular Volume 80.7 fL (81-99); Mean Platelet Vol. 10.8 fl (6.2-12.0); Monocyte# 0.91 X10^3/uL; Monocyte% 9.3 % (0-10); NRBC Flagged by Analyzer 0 % (0-5); Neutrophil # 6.11 X10^3/uL (2.7-7.7); Neutrophil % 62.1 % (47-70); Platelet Count 251 K/mm3 (150-450); RBC Distribution Width CV 13.7 % (11.6-14.6); RBC Distribution Width SD 39.4 fl (35.1-43.9); Red Blood Count 4.61 M/mm3 (4.2-5.4); White Blood Count 9.8 K/mm3 (4.4-11.0)
[2024-05-30 23:00] LABS: ALB/GLOB Ratio 1.3 RATIO (0.9-2.4); AST(SGOT) 18 U/L (<=31); Alanine Aminotransfer ALT/SGPT 9 U/L (<=34); Alkaline Phosphatase 89 U/L (35-104); Anion Gap 12 (5-15); BUN 19 mg/dL (4-19); BUN/Creat Ratio 17.7 RATIO (10-20); Calcium,Total 9.8 mg/dL (7.6-11.0); Carbon Dioxide 22.3 mmol/L (21.0-32.0); Chloride 105 mmol/L (98-108); Creatinine, Serum 1.09 mg/dL (0.70-1.20); EST Glomerular Filtration Rate 50 (>60); Glucose 77 mg/dL (70-99); Potassium 4.8 mmol/L (3.3-5.1); Sodium Level 139 mmol/L (133-145); Total Bilirubin 0.48 mg/dL (0.00-1.30); Vitamin D,25 Hydroxy 29.1 ng/mL (30-100)
== END | disposition home or self-care (01) ==
LOC: MFPLAB 11:37
PROVIDERS: PCP Family Medicine; Referring Provider Family Medicine; Visit Provider Family Medicine
DX: R53.83 Other fatigue (principal)
CPT/HCPCS: 36415; 80053; 82306; 84443; 85025

== ENCOUNTER → 2025-02-27 | Outpatient (CLI) | payer MEDICARE, SELFPAY ==
[2025-02-27 18:37] LABS: CORTISOL PM 9.21 ug/dL (2.68-10.50); Vitamin B12 1796 pg/mL (180-914); Vitamin D,25 Hydroxy 29.3 ng/mL (30-100)
== END | disposition home or self-care (01) ==
LOC: MTLAB 15:50
PROVIDERS: PCP Family Medicine; Referring Provider Family Medicine; Visit Provider Family Medicine
DX: N94.89 Other specified conditions associated with female genital organs and menstrual cycle (principal); R53.83 Other fatigue
CPT/HCPCS: 36415; 82306; 82533; 82607; 84439; 84443